=== PATIENT | female | born 1975 | race Caucasian/White ===

== ENCOUNTER 2016-06-30 16:22 | Inpatient (IN) | payer OTHER ==
[~2016-06-30] VITALS: Ht 149.9 cm; Wt 100.7 kg
[2016-06-30 16:22] VITALS: BP 112/67; PULSE 82; RESP 14; TEMP 96.7; O2SAT 100
[~2016-06-30 16:22] MED LIST: CAT.1 PO; LIDOCAINE/EPI 1% 1:100000 20 ML VIAL INJ ONE; MIDAZOLAM HCL 5 MG/5 ML VIAL IVP ONE; SSNOVOLOG SUBCUT; TEMA15CA51 PO; WATER FOR IRRIGATION,STERILE 1,000 ML IRRIG.SOLN IR ONE
--- NOTE | 2016-06-30 16:22 | NUR ---
Patient to ER bed 2 to gown for evaluation. Side rails up. Report given to NORMA Meraz. Addendum: 06/30/16 at 1831 by RITA Right upper arm fistula site present-patient states will use for first time saturday-small open area of skin noted, all pink, clean and dry. Right upper chest dialysis port present with pigtail-all covered with dressing, clean dry and intact, presently uses for dialysis.
--- NOTE | 2016-06-30 16:23 | NUR ---
Patient brought in by ambulance, stable condition, alert and oriented x4. States was at dialysis and started feeling very weak. Per EMT, states that patient's blood pressure dropped, fluid was given and then blood pressure returned to normal. Patient states still feels very weak. No dizziness, chest pain, pressure or radiaitng pain per patient. States that bilateral legs are cramping. No other complaints/injuries per patient or notied.
--- NOTE | 2016-06-30 16:33 | NUR ---
Dr Rangel at bedside
[2016-06-30] MEDS ORDERED: FOLI-43 PO (17:04)
[2016-06-30] MEDS ORDERED: HYDR-4039 PO (17:04)
[2016-06-30] MEDS ORDERED: LEVO50TA8 PO (17:04)
[2016-06-30] MEDS ORDERED: ONDA4TAB22 PO (17:04)
[2016-06-30] MEDS ORDERED: CALC667T5 PO (17:04)
[2016-06-30] MEDS ORDERED: CHOL100053 PO (17:04)
[2016-06-30] MEDS ORDERED: FAMO20TA8 PO (17:04)
[2016-06-30] MEDS ORDERED: ALPR0.5T8 PO (17:04)
[2016-06-30] MEDS ORDERED: NEPH PO (17:04)
[2016-06-30] MEDS ORDERED: GABA-531 PO (17:04)
--- NOTE | 2016-06-30 17:05 | NUR ---
Medication reconciliation completed with information provided by PATIENT. Any prior medication reconciliation on file was reviewed and corrected.
[2016-06-30 17:12] LABS: BILIRUBIN,URINE NEGATIVE (NEGATIVE); BLOOD, URINE NEGATIVE (NEGATIVE); COLOR,URINE YELLOW (YELLOW); GLUCOSE,URINE 3+ (NEGATIVE); KETONES,URINE NEGATIVE (NEGATIVE); LEUKOCYTE ESTERASE ,URINE NEGATIVE (NEGATIVE); NITRITE, URINE NEGATIVE (NEGATIVE); PROTEIN URINE 3+ (NEGATIVE); UROBILINOGEN,URINE 0.2 (0.2-1.0)
[2016-06-30 17:14] LABS: BASOPHILS # (AUTO) 0.1 K/uL (0.0-0.2); EOSINOPHILS # (AUTO) 0.2 K/uL (0.0-0.4); EOSINOPHILS % (AUTO) 1.8 % (0.0-4.0)
[2016-06-30 17:16] LABS: BASOPHILS % (AUTO) 0.6 % (0.0-2.0); CALCIUM 8.5 mg/dL (8.4-11.0); CREATININE 3.39 mg/dL (0.55-1.30); HEMATOCRIT 34.2 % (36-48); HEMOGLOBIN 11.4 g/dL (12.0-16.0); LYMPHOCYTES % (AUTO) 15.4 % (20.5-51.5); MEAN CORPUSCULAR HEMOGLOBIN 32 pg (27-31); MEAN CORPUSCULAR HGB CONC 33 % (32-36); MEAN CORPUSCULAR VOLUME 95 fL (79.0-98.0); MONOCYTES % (AUTO) 7.4 % (1.7-9.3); NEUTROPHILS # (AUTO) 9.6 K/uL (1.8-7.7); NEUTROPHILS % (AUTO) 74.8 % (40.0-70.0); PLATELET COUNT (AUTO) 203 K/uL (130-430); POTASSIUM 4.4 mmol/L (3.5-5.1); RED CELL DISTRIBUTION WIDTH 13.7 % (9.0-15.0); WHITE BLOOD COUNT (AUTO) 12.9 K/uL (4.8-10.8)
[2016-06-30 17:17] LABS: PROTHROMBIN TIME 10.5 SECS (9.5-12.5)
[2016-06-30 17:19] LABS: CLARITY/URINE HAZY (CLEAR)
[2016-06-30 17:20] LABS: BACTERIA,URINE FEW /HPF (None Seen); RBC,URINE NONE SEEN /HPF (0-3); WBC,URINE 0-3 /HPF (0-3)
[2016-06-30 17:21] LABS: MUCUS,URINE None Seen /LPF (None Seen)
[2016-06-30 17:32] LABS: ALBUMIN 3.4 g/dL (3.4-4.8); TOTAL BILIRUBIN 0.4 mg/dL (0.0-1.0); TOTAL PROTEIN, SERUM 7.5 g/dL (6.4-8.3)
--- NOTE | 2016-06-30 18:17 | NUR ---
Patient in stable condition, no distress noted
--- NOTE | 2016-06-30 19:10 | NUR ---
Care and report recieved from Mariya GREEN. Patient brought in by ambulance, stable condition, alert and oriented x4. States she was at dialysis today and started feeling very weak. Per Mariya GREEN, states that patient's blood pressure dropped, fluid was given and then blood pressure returned to normal. Pt doesn't feel weak, but is having 7/10 body aches. Pt is resting comfortably in her bed. Pt on panel monitor and will continue to monitor. Vitals stable. No other injuries or complaints mentioned/noted. No distress noted.
[2016-06-30] MEDS ORDERED: NS 500 ML IV ONE ×2 (19:30→22:30)
--- NOTE | 2016-06-30 19:30 | NUR ---
Pt is awaiting being admitted. Waiting for Dr. Alvarado to call back.
--- NOTE | 2016-06-30 20:00 | NUR ---
# 22 gauge angiocath placed to L hand. Use of asceptic technique. Opsite placed over site. Blood return noted. Flushed with 10 cc of normal saline. No evidence of infiltration noted. Patient tolerated well. Placed by Cara GREEN.
[2016-06-30] MEDS ORDERED: KETOROLAC TROMETHAMINE 30 MG VIAL IVP ONE (20:15)
[2016-06-30] MEDS ORDERED: PROCHLORPERAZINE EDISYLATE 10 MG/2 ML VIAL IVP ONE (20:15)
[2016-06-30] MEDS ORDERED: ACETAMINOPHEN 500 MG TABLET PO ONE (20:15)
[2016-06-30] MEDS ORDERED: DIPHENHYDRAMINE INJ 50 MG/ML VIAL IVP ONE (20:15)
[2016-06-30] MEDS ORDERED: MORPHINE 4 MG/ML INJ. SYRINGE IVP ONE (20:15)
[2016-06-30] MEDS ORDERED: ACETAMINOPHEN 500 MG TABLET ONE (20:59)
--- NOTE | 2016-06-30 22:15 | NUR ---
Dr. Sauceda made aware of 81/32 BP. Pt is A and O x4. Pt is responding approriately. ordered another 500 ml NS bolus.
--- NOTE | 2016-06-30 22:15 | NUR ---
Sepsis protocol reevaluated with Dr. Sauceda. At this time, MD does not want to start sepsis protocol.
[2016-06-30] MEDS ORDERED: ONDANSETRON HCL 4 MG/2 ML VIAL IVP PRN (23:00)
[2016-06-30] MEDS ORDERED: ACETAMINOPHEN 325 MG TABLET PO PRN (23:00)
--- NOTE | 2016-06-30 23:34 | NUR ---
ADMISSION NOTE Received patient from ER via gurashlyn, received report from RN. Patient admitted with diagnosis of Hypotension and Headache. Patient oriented to hospital routine, call light, toileting and safety-patient verbalized understanding.
--- NOTE | 2016-06-30 23:35 | NUR ---
Patient will be admitted to care of Dr. Alvarado. Admitted to Telemetry unit. Will go to room 118A. Summary report printed. Report given to Qiana GREEN.
--- NOTE | 2016-06-30 23:45 | NUR ---
Admission Assessment Received patient from ED, AAO x4, no acute distress noted, is at the bedside. Assessment complete, vital signs stable, blood pressure within normal limits, no complain of pain at this time. Patient is blind, no complain of dizziness/light headedness, ambulatory with steady gait with assistance to restroom and safely back to bed. IV noted to left hand, saline locked at this time, flushes well, IV antibiotics to be administered per MD order. Right chest noted with permacath for hemodialysis access. Education provided to patient to call for assistance when she needs to get out of bed, she verbalized understanding. Plan of care discussed with patient and at the bedside, they verbalized understanding. Patient is verbally able to make needs known and encouraged to do so. Call light is within reach, all fall and safety precautions in place, will continue to monitor for change in patient status.
[2016-06-30 23:51] VITALS: BP 121/74; PULSE 75; RESP 20; TEMP 97.8; O2SAT 98
[2016-07-01] VITALS (22 sets, daily range): BP systolic 71–155; BP diastolic 30–84; PULSE 75–110; RESP 14–26; TEMP 97.2–98.7; O2SAT 15–100
[2016-07-01] MEDS ORDERED: VANCOMYCIN HCL 1000 MG/VIAL IV ONE (00:12)
[2016-07-01] MEDS ORDERED: PIPERACILLIN/TAZOBACTAM 2.25 GM VIAL IV ONE (00:12)
[2016-07-01] MEDS: PIPERACILLIN/TAZO 2.25G/DEX-IS 50 ML IV SCH ×3 (00:25→15:17)
[2016-07-01] MEDS: VANCOMYCIN HCL 1 GM/NS PREMIX 250 ML IV ONE ×2 (01:00→02:00)
--- NOTE | 2016-07-01 02:30 | NUR ---
CONSULTATION PAGED REASON FOR CONSULTATION: dialysis WAS CONSULT CALLED? yes PERSON WHO WAS NOTIFIED: mendoza CONSULTING PHYSICIAN: Dr. Chaves; Dr. Red is intercell connector placer for [facility]: Nephrology [facility] PHONE NUMBER: [phone]
--- NOTE | 2016-07-01 02:35 | NUR ---
RN Rounds Patient is resting quietly in bed, IV noted to have been accidentally pulled out. New IV is being attempted at this time. Patient noted to be short of breath, O2 started via nasal cannula at 2L/min and tolerating well. Zosyn is stopped for now until IV access can be established, Vancomycin to be started after. and mother are at the bedside. Reminded patient to call for assistance if she needs to get out of bed, she verbalized understanding. Call light is within reach, all fall and safety precautions in place, will continue to monitor.
--- NOTE | 2016-07-01 03:26 | NUR ---
PAGED DR SULLIVAN
[2016-07-01] MEDS ORDERED: HYDROCORTISONE SOD SUCC 100 MG/2 ML VIAL IVP ONE (03:30)
[2016-07-01] MEDS ORDERED: FUROSEMIDE 20 MG/2 ML VIAL IVP ONE (03:30)
[2016-07-01] MEDS ORDERED: FAMOTIDINE PF 20 MG/2 ML VIAL IVP ONE (03:30)
[2016-07-01] MEDS ORDERED: DIPHENHYDRAMINE INJ 50 MG/ML VIAL IVP ONE (03:30)
--- NOTE | 2016-07-01 03:30 | NUR ---
MD Called Dr Alvarado was called and made aware that patient was receiving IV Zosyn and became short of breath, respiration rate increased to 24 and O2 saturation 87-89%, BP 140/100 and HR 120. Also informed him that blood cultures could not be drawn by patient case coordinator or nurses due to patient being a hard stick. New orders received to not give dose of Vancomycin, give Lasix 20mg IVP once, Solu-Cortef 50mg IVP once, Benadryl 25mg IVP once, Pepcid 20mg IVP once and breathing treatments with Albuterol T3ssiax. Also received titration order for oxygen to maintain O2 >94%. Orders noted and to be carried out.
--- NOTE | 2016-07-01 03:50 | NUR ---
paged for dr. montague , dialed [phone] spoke with Sydni
[2016-07-01] MEDS: ALBUTEROL SULFATE 0.083% 2.5 MG/3 ML VIAL.NEB INH SCH ×4 (03:52→19:54)
--- NOTE | 2016-07-01 03:52 | NUR ---
MD Called Called Dr Alvarado and informed him that patient's blood pressure is now 77/49 and 88/56 on reassessment with HR ranging from 80's-90's. New orders received to transfer patient to ICU with Levophed starting at 5mcg to maintain SBP >90, give a NS bolus of 250mL, and cardiology consultation with Dr. Molina. Orders noted and to be carried out.
[2016-07-01] MEDS ORDERED: ALBUTEROL SULFATE 0.083% 2.5 MG/3 ML VIAL.NEB INH ONE ×2 (03:53→09:30)
[2016-07-01] MEDS ORDERED: NS 250 ML IV ONE ×2 (04:00→19:30)
--- NOTE | 2016-07-01 04:15 | NUR ---
PT TRANSFERRED: Received report from NORMA Kiran via SB[facility] method.Patient hypotensive, currently receiving 250 ml bolus of NS.Will reassess BP within 15 mins.
--- NOTE | 2016-07-01 04:15 | NUR ---
Patient Transferred to ICU Patient was transferred to ICU per MD order, hypotensive but asymptomatic at this time. Normal saline bolus infusing at this time to gravity. Ordered medications administered per MD order, Lasix held due to decreased blood pressure. Patient tolerating nasal cannula at 1L/min with O2 saturation at 99%. SBAR report was endorsed to nurse at bedside.
[2016-07-01] MEDS ORDERED: NOREPINEPHRINE BITARTRATE 4 MG in NS 246 ML IV PRN (04:30)
--- NOTE | 2016-07-01 04:30 | NUR ---
PT UPDATE: Patient BP 119/68, no signs of distress.Will continue to monitor.
[2016-07-01] MEDS ORDERED: NOREPINEPHRINE 4 MG/4 ML VIAL IV ONE (04:32)
--- NOTE | 2016-07-01 04:34 | NUR ---
CALLED DR. REED FOR MORNING CONSULT AND DR. JUDGE IS THE ONCALL. CALLED DR. LAZAR FOR MORNING CONSULT AND SPOKE WITH BRENNA.
--- NOTE | 2016-07-01 05:20 | NUR ---
LEVOPHED DRIP STARTED: Patient BP 88/50.Levophed drip titration started at 5 mcg/min as ordered.Will reassess BP within 15 minutes.
--- NOTE | 2016-07-01 05:35 | NUR ---
PT UPDATE: Pt BP 135/68 HR 82 RR 16 O2SAT 100%. Levophed drip remains at rate of 5 mcg/min. Will continue to monitor.
[2016-07-01] MEDS: NORMAL SALINE 5 ML DISP.SYRIN IVF SCH ×3 (06:00→21:35)
--- NOTE | 2016-07-01 07:15 | NUR ---
CLOSING NOTE: Report given to NORMA Mabry.Endorsed plan of care to oncoming nurse.
--- NOTE | 2016-07-01 07:30 | NUR ---
Received pt asleep and family at bedside. VSS on levophed at 3 mcgs. SR on monitor. HOB up. Will monitor.
--- NOTE | 2016-07-01 08:20 | NUR ---
Pt awake and oriented. Pt is blind and can only see shadows. C/O being hungry. Levophed turned down to 2 mcgs. and infusing to 24g left hand. Will monitor BP. Lungs with crackles and diminished in bases. 02 at 3L and turned down to 2L by RT. Sats 97%. HOB up. No edema and pulses palpable. Able to move extremities but feels weak. Pt states she still voids but doesn't meed to go now. Right chest permacath in place. Right upper arm AV graft with weak bruit and thrill. Call fam in reach and Will continue to monitor.
[2016-07-01 08:36] LABS: HEMATOCRIT 35.7 % (36-48); HEMOGLOBIN 11.7 g/dL (12.0-16.0); MEAN CORPUSCULAR HEMOGLOBIN 31 pg (27-31); MEAN CORPUSCULAR HGB CONC 33 % (32-36); MEAN CORPUSCULAR VOLUME 95 fL (79.0-98.0); PLATELET COUNT (AUTO) 224 K/uL (130-430); RED BLOOD CELL COUNT(AUTO) 3.78 MIL/uL (4.2-6.2); RED CELL DISTRIBUTION WIDTH 13.6 % (9.0-15.0)
[2016-07-01 08:40] LABS: WHITE BLOOD COUNT (AUTO) 20.6 K/uL (4.8-10.8)
[2016-07-01 08:48] LABS: ALBUMIN 3.6 g/dL (3.4-4.8); CALCIUM 8.6 mg/dL (8.4-11.0); CREATININE 4.93 mg/dL (0.55-1.30); TOTAL BILIRUBIN 0.5 mg/dL (0.0-1.0); TOTAL PROTEIN, SERUM 7.6 g/dL (6.4-8.3)
[2016-07-01 08:52] LABS: POTASSIUM 6.7 mmol/L (3.5-5.1)
[2016-07-01] MEDS: FOLIC ACID 1 MG TABLET PO SCH ×2 (08:57→09:00)
[2016-07-01] MEDS: MORPHINE 2 MG/ML INJ. SYRINGE IVP PRN ×3 (08:57→20:10)
[2016-07-01] MEDS: FAMOTIDINE 20 MG TABLET PO SCH (08:57)
[2016-07-01] MEDS: GABAPENTIN 300 MG CAPSULE PO SCH ×3 (08:57→21:36)
[2016-07-01] MEDS: NEPHROVITE, (FOLIC ACID/VITAMIN B COMP W-C 1 TAB) PO SCH (08:57)
[2016-07-01] MEDS ORDERED: LEVOTHYROXINE SODIUM 0.05 MG TABLET PO SCH (09:00)
--- NOTE | 2016-07-01 09:16 | NUR ---
Call out to Dr. Chaves regarding labs.
[2016-07-01 09:19] LABS: ATYPICAL LYMPHOCYTES % 0 % (0-0); BAND % (MANUAL) 3 % (0-6); BASOPHILS % (MANUAL) 0 % (0-2); EOSINOPHILS % (MANUAL) 0 % (0-7); LYMPHOCYTES % (MANUAL) 8 % (20-46); MONOCYTES % (MANUAL) 3 % (0-11)
[2016-07-01] MEDS ORDERED: INSULIN REGULAR, HUMAN 100 UNITS/ML, 10 ML VIAL IVP ONE (09:30)
[2016-07-01] MEDS ORDERED: SODIUM BICARBONATE 8.4% JECT 50 MEQ/50 ML SYRINGE IVP ONE (09:30)
[2016-07-01] MEDS ORDERED: SODIUM POLYSTYRENE SULFONATE 15 GM/60 ML UDBTL PO ONE (09:30)
--- NOTE | 2016-07-01 09:45 | NUR ---
Spoke with Dr. Red and reported K to him. Orders left.
--- NOTE | 2016-07-01 09:57 | NUR ---
consult for dr. holder called (dr. dobson is verification engineer) spoke to breann villarreal [phone]
[2016-07-01] MEDS ORDERED: CALCIUM GLUCONATE 2 GM in NS 100 ML IV ONE (10:30)
[2016-07-01] MEDS ORDERED: CALCIUM CHLORIDE 2 GM in NS 100 ML IV ONE (11:00)
[2016-07-01] MEDS ORDERED: HEPARIN SODIUM,PORCINE 5000 UNITS/ML VIAL ONE (11:38)
[2016-07-01] MEDS ORDERED: ALPRAZolam 0.25 MG TABLET PO PRN (11:45)
[2016-07-01] MEDS ORDERED: INSULIN ASPART 100 UNITS/ML, 10 ML VIAL (NovoLOG) SUBCUT PRN (11:45)
--- NOTE | 2016-07-01 11:45 | NUR ---
Dr. Red in to see pt. Orders left. Pt using cell phone in bed. States morphine given earlier helped with her pain. VSS. ST on monitor. No stool yet since giving kayexalate/bicarb and insulin earlier.
[2016-07-01] MEDS ORDERED: GLUCOSE 15 GM GEL (in 37.5 GM TUBE) PO PRN ×2 (12:00)
[2016-07-01] MEDS ORDERED: VANCOMYCIN HCL 1,500 MG in NS 250 ML IV ONE (12:00)
[2016-07-01] MEDS ORDERED: CALCIUM CHLORIDE 1 GM in NS 100 ML IV ONE (12:00)
[2016-07-01] MEDS ORDERED: DEXTROSE 50%-WATER 50 ML DISP.SYRIN IVP PRN ×2 (12:00)
[2016-07-01] MEDS ORDERED: INSULIN REGULAR, HUMAN 100 UNITS/ML, 10 ML VIAL SUBCUT ONE (12:15)
[2016-07-01 13:14] LABS: POTASSIUM 5.2 mmol/L (3.5-5.1)
[2016-07-01 13:15] LABS: CALCIUM 8.2 mg/dL (8.4-11.0); CREATININE 5.46 mg/dL (0.55-1.30)
--- NOTE | 2016-07-01 13:35 | NUR ---
Dialysis in progress without problems.
--- NOTE | 2016-07-01 15:30 | NUR ---
Dr. Red called back and lactic acid reported to him. Order left. IVF increased to 50 cc/hr.
--- NOTE | 2016-07-01 15:45 | NUR ---
Dialysis completed. No fluid removed due to elevated HR and low BP when attempted.
--- NOTE | 2016-07-01 17:30 | NUR ---
Pt having diarrhea x 3 and shari care done.
[2016-07-01 18:01] LABS: CALCIUM 7.8 mg/dL (8.4-11.0); CREATININE 2.39 mg/dL (0.55-1.30)
[2016-07-01] MEDS: INSULIN ASPART 100 UNITS/ML, 10 ML VIAL (NovoLOG) SUBCUT PRN (18:03)
[2016-07-01 18:13] LABS: POTASSIUM 2.9 mmol/L (3.5-5.1)
--- NOTE | 2016-07-01 18:15 | NUR ---
Spoke to Dr. Red and reported K 2.7. Orders left.
[2016-07-01] MEDS ORDERED: POTASSIUM CHLORIDE 20 MEQ TAB.PRT.SR PO ONE (18:45)
[2016-07-01] MEDS ORDERED: NACL 0.9% 1,000 ML IV SCH (19:30)
--- NOTE | 2016-07-01 20:00 | NUR ---
Received pt aaox4. SR with occasional PVC on tele. Room air. No complaints of chest pain or shortness of breath. Left wrist PIV, patent and intact when flushed. IVF infusing via blue port of permacath. Pt states she has a headache 12/10, will medicate. Pt repositions independently. Will continue to monitor.
[2016-07-02] VITALS (15 sets, daily range): BP systolic 100–153; BP diastolic 49–93; PULSE 80–110; RESP 13–26; TEMP 97.8–99.6; O2SAT 94–100; Ht 149.9 cm; Wt 100.7 kg
--- NOTE | 2016-07-02 | NUR ---
Pt resting in bed. On phone with friend. ST with occ PVC on tele. O22L via nasal cannula. No complaints of pain at this time. Will continue to monitor.
[2016-07-02] MEDS: PIPERACILLIN/TAZO 2.25G/DEX-IS 50 ML IV SCH ×2 (00:57→12:20)
[2016-07-02] MEDS: ALBUTEROL SULFATE 0.083% 2.5 MG/3 ML VIAL.NEB INH SCH ×4 (01:04→20:37)
--- NOTE | 2016-07-02 04:00 | NUR ---
Pt sleeping in bed. NO s/s cardiac/respiratory distress noted. Will continue to monitor.
--- NOTE | 2016-07-02 06:09 | NUR ---
Toiletries at bedside. Pt states she can take care of herself. Will continue to monitor.
[2016-07-02] MEDS: GABAPENTIN 300 MG CAPSULE PO SCH ×3 (07:16→21:17)
[2016-07-02] MEDS: LEVOTHYROXINE SODIUM 0.05 MG TABLET PO SCH (07:16)
[2016-07-02] MEDS: NORMAL SALINE 5 ML DISP.SYRIN IVF SCH ×3 (07:16→21:17)
[2016-07-02 07:31] LABS: BASOPHILS % (AUTO) 0.6 % (0.0-2.0); EOSINOPHILS # (AUTO) 0.2 K/uL (0.0-0.4); EOSINOPHILS % (AUTO) 2.3 % (0.0-4.0); HEMATOCRIT 27.4 % (36-48); HEMOGLOBIN 9.2 g/dL (12.0-16.0); LYMPHOCYTES # (AUTO) 1.7 K/uL (1.0-5.5); LYMPHOCYTES % (AUTO) 23.5 % (20.5-51.5); MEAN CORPUSCULAR HEMOGLOBIN 31 pg (27-31); MEAN CORPUSCULAR HGB CONC 34 % (32-36); MEAN CORPUSCULAR VOLUME 94 fL (79.0-98.0); MONOCYTES # (AUTO) 0.5 K/uL (0.0-1.0); MONOCYTES % (AUTO) 6.8 % (1.7-9.3); NEUTROPHILS % (AUTO) 66.8 % (40.0-70.0); PLATELET COUNT (AUTO) 186 K/uL (130-430); RED BLOOD CELL COUNT(AUTO) 2.92 MIL/uL (4.2-6.2); RED CELL DISTRIBUTION WIDTH 13.4 % (9.0-15.0); WHITE BLOOD COUNT (AUTO) 7.4 K/uL (4.8-10.8)
--- NOTE | 2016-07-02 07:43 | NUR ---
Endorsed to NORMA Coyne.
[2016-07-02 07:53] LABS: ALBUMIN 3.1 g/dL (3.4-4.8); CALCIUM 8.3 mg/dL (8.4-11.0); CREATININE 4.52 mg/dL (0.55-1.30); POTASSIUM 3.6 mmol/L (3.5-5.1); TOTAL BILIRUBIN 0.3 mg/dL (0.0-1.0); TOTAL PROTEIN, SERUM 6.5 g/dL (6.4-8.3)
[2016-07-02] MEDS: INSULIN ASPART 100 UNITS/ML, 10 ML VIAL (NovoLOG) SUBCUT PRN ×4 (07:54→21:28)
--- NOTE | 2016-07-02 08:43 | NUR ---
RECEIVED PT ALERT AND ORIENTED LOOKING AT CELL PHONE. NO C/O. SR WITH PVC'S ON MONITOR. 02 2L NC IN USE WITH SATS 97%. LUNGS DIMINISHED IN BASES. HOB UP. PT HAS A RIGHT CHEST PERMACATH IN PLACE AND A LEFT HAND 24G SALINE LOCK. NO IVF INFUSING AT THIS TIME DUE TO BP BEING ELEVATED LAST NIGHT AND MD ORDER TO STOP. WILL MONITOR PT.
--- NOTE | 2016-07-02 08:50 | NUR ---
PT HAS A GOOD APETITE FOR BREAKFAST. TAKING FLUIDS. VSS. SR WITH PVC'S ON THE MONITOR. PT IS ANURIC PER DR JUDGE. NO DIARRHEA TODAY. WILL CONTINUE TO MONITOR.
[2016-07-02] MEDS: FAMOTIDINE 20 MG TABLET PO SCH (09:03)
[2016-07-02] MEDS: NEPHROVITE, (FOLIC ACID/VITAMIN B COMP W-C 1 TAB) PO SCH (09:03)
--- NOTE | 2016-07-02 09:19 | NUR ---
Nutrition Update Fabian Scale 18 noted. Pt admitted for hypotension and headache. Diet: renal standard BMI: 44.8 kg/m2 RD to follow per nutrition care standards.
[2016-07-02] MEDS: MORPHINE 2 MG/ML INJ. SYRINGE IVP PRN ×3 (10:01→21:17)
[2016-07-02] MEDS: ALPRAZolam 0.25 MG TABLET PO PRN ×2 (10:21→21:20)
--- NOTE | 2016-07-02 10:37 | NUR ---
DR. SULLIVAN IN TO SEE PT. ORDERS LEFT.
--- NOTE | 2016-07-02 10:41 | NUR ---
MEDICATED PT WITH MORPHINE FOR C/O A HEADACHE. WILL RE EVALUATE.
--- NOTE | 2016-07-02 11:20 | NUR ---
PICC LINE NURSE HERE TO START PIV WITH US PER DR JUDGE'S ORDER. 20G TO RIGHT AC STARTED. Addendum: 07/02/16 at 1321 by Doretha Barbour RN PIV STARTED IN LEFT AC NOT RIGHT SIDE DOCUMENTED ABOVE.
--- NOTE | 2016-07-02 12:40 | NUR ---
Transfer from ICU: Received 41 years old from ICU via a bed. She is alert, oriented x4, denies any pain or discomfort at this time. She is blind right eye, but able to see only blur on left eye. On Oxygen 2 L/M via NC with sat O2= 97%. On Antibiotic running via Left AC IV access, no sign of infiltration, and IV lock # 24-G at left hand. Perma cath is on right upper chest, and AV-shunt on right upper arm.
--- NOTE | 2016-07-02 12:50 | NUR ---
TRANSFERRED PT TO [facility] WITH BELONGINGS. PT HAD CELL PHONE IN HER HAND. REPORT GIVEN TO LOUIS.
--- NOTE | 2016-07-02 13:18 | NUR ---
Numbness: Patient complains of numbness on her right hand. She states that she can not hold fork to eat. She said " I'm scare that I will get stroke." Dr. Alvarado is paged.
--- NOTE | 2016-07-02 13:50 | NUR ---
REPORT. RECEIVED FROM LOUIS, RN. WENT TO ASSESS PT. PT CALMLY STATED, "I'M NERVOUS BECAUSE MY DOCTOR WILL TAKE OUT MY CATHETER TODAY." "IT'S INFECTED". STAYED WITH PT FOR 10 MINUTES. ALLOWED HER TO VENTILATE HER FEELINGS. WILL WAIT FOR THE SURGEON ON TODAY'S PLAN.
[2016-07-02] MEDS ORDERED: LIDOCAINE 1%, 20 ML MDV 0 ML ONE (14:19)
--- NOTE | 2016-07-02 14:19 | NUR ---
PAIN. DR BISHOP HERE AND WENT TO SEE PT. SHE COMPLAINED OF HEADACHE, 6/10 SCALE, MORPHINE 2 MG IVP GIVEN.
--- NOTE | 2016-07-02 14:25 | NUR ---
PROCEDURE. DR BISHOP CAME BACK. TIME OUT DONE, LIDOCAINE WITH EPINEPHRINE INJECTED BY DR BISHOP SUBCUT INTO RT CHEST, ATTEMPTED TO REMOVE CATHETER, UNSUCCESSFUL, PATCHED UP SITE WITH VASELINE GAUZE AND DRY GAUZE TO STOP BLEEDING AND TAPED WELL. CLEANED PT AFTER THE PROCEDURE.
--- NOTE | 2016-07-02 14:40 | NUR ---
IRRIGATION SYSTEM INSTALLER. DR CUBA CAME IN AND EXAMINED PT.
[2016-07-02] MEDS ORDERED: NACL 0.9% 1,000 ML IV SCH (16:00)
--- NOTE | 2016-07-02 16:00 | NUR ---
NURSING. PT CALM, VITAL SIGNS GOOD, HER MOTHER AT BEDSIDE, CONVERSATION GOING ON.
--- NOTE | 2016-07-02 18:30 | NUR ---
ANXIETY. PT SEEN IN TEARS WHILE SPEAKING TO HER MOTHER VIA PHONE, PT VERBALIZED FEAR FOR TOMORROW'S SURGERY, COACHED PT TO CONTROL HER ANXIETY, TO DIVERT HER ATTENTION TO OTHER THINGS, WATCH HER FAVORITE FUNNY SHOW ON TV, LISTEN TO CALMING MUSIC.
--- NOTE | 2016-07-02 19:40 | NUR ---
PM ASSESSMENT PT. A/OX4, VITAL SIGNS STABLE, NO DISTRESS NOTED, DENIES PAIN, NOTED WITH R. UPPER CHEST DRESSING. UPDATED WITH PLAN OF CARE, ENCOURAGED PT. TO USE CALL LIGHT FOR ASSISTANCE, CALL LIGHT WITHIN REACH, WILL CONTINUE TO MONITOR.
--- NOTE | 2016-07-02 21:30 | NUR ---
ACCUCHECK BLOOD QYILW=[id number], 8 UNITS NOVOLOG GIVEN ORDERED, WILL CONTINUE TO MONITOR.
--- NOTE | 2016-07-02 22:30 | NUR ---
RN ROUNDS PT. RESTING QUIETLY, VITAL SIGNS STABLE, NO DISTRESS NOTED, DENIES PAIN, CALL LIGHT WITHIN REACH, WILL CONTINUE TO MONITOR.
[2016-07-03] VITALS (7 sets, daily range): BP systolic 92–140; BP diastolic 55–87; PULSE 87–103; RESP 18–20; TEMP 97–99.5; O2SAT 92–100
[2016-07-03] MEDS: PIPERACILLIN/TAZO 2.25G/DEX-IS 50 ML IV SCH (00:06)
--- NOTE | 2016-07-03 00:30 | NUR ---
RN ROUNDS PT. RESTING QUIETLY, VITAL SIGNS STABLE, NO DISTRESS NOTED, DENIES PAIN, CALL LIGHT WITHIN REACH, WILL CONTINUE TO MONITOR.
[2016-07-03] MEDS: ALBUTEROL SULFATE 0.083% 2.5 MG/3 ML VIAL.NEB INH SCH ×3 (01:22→16:33)
--- NOTE | 2016-07-03 02:00 | NUR ---
RN ROUNDS PT. RESTING QUIETLY, VITAL SIGNS STABLE, NO DISTRESS NOTED, DENIES PAIN, CALL LIGHT WITHIN REACH, WILL CONTINUE TO MONITOR.
--- NOTE | 2016-07-03 04:00 | NUR ---
RN ROUNDS PT. RESTING QUIETLY, VITAL SIGNS STABLE, NO DISTRESS NOTED, DENIES PAIN, CALL LIGHT WITHIN REACH, WILL CONTINUE TO MONITOR.
--- NOTE | 2016-07-03 06:45 | NUR ---
CLOSING PT. RESTING QUIETLY, VITAL SIGNS STABLE, NO DISTRESS NOTED, DENIES PAIN, CALL LIGHT WITHIN REACH.
[2016-07-03] MEDS: NORMAL SALINE 5 ML DISP.SYRIN IVF SCH ×3 (06:53→22:27)
[2016-07-03] MEDS: LEVOTHYROXINE SODIUM 0.05 MG TABLET PO SCH (06:53)
[2016-07-03] MEDS: GABAPENTIN 300 MG CAPSULE PO SCH ×3 (06:53→22:26)
--- NOTE | 2016-07-03 08:00 | NUR ---
initial notes rec patient asleep but aorusbale to stimuli. resp easy and unlabored. no dizziness or nausea vomiting noted. with an av shunt on the r arm but no thrill or bruit. perma cath on the right upper chest with a bulky dressing intact. no bleeding noted. denies pain. ambulated with assists to the br and bianka well. bed in low position and side rails up and locked. will continue to monitor patient.
--- NOTE | 2016-07-03 10:00 | NUR ---
round seen by dr austen iniguez at bedside with order for dialysis today.
--- NOTE | 2016-07-03 10:50 | NUR ---
rounds pt was taken to sx via bed for removal of perma cath. dr arana came to see patient. mother at bedside.
[2016-07-03] MEDS: NACL 0.9% 1,000 ML IV SCH (11:42)
[2016-07-03] MEDS ORDERED: ONDANSETRON 4 MG ODT TAB PO SCH (11:45)
--- NOTE | 2016-07-03 13:00 | NUR ---
rounds pt back from rr s/p removal of the perma cath. dressing on the r upper chest intact. no bleeding noted.
[2016-07-03 13:09] LABS: HEPATITIS A AB, IgM Negative (Negative); HEPATITIS B CORE AB, IgM Negative (Negative); HEPATITIS B SURFACE AG Negative (Negative)
[2016-07-03] MEDS: INSULIN ASPART 100 UNITS/ML, 10 ML VIAL (NovoLOG) SUBCUT PRN ×3 (13:20→20:50)
[2016-07-03] MEDS: FAMOTIDINE 20 MG TABLET PO SCH (13:23)
[2016-07-03] MEDS: NEPHROVITE, (FOLIC ACID/VITAMIN B COMP W-C 1 TAB) PO SCH (13:23)
--- NOTE | 2016-07-03 13:30 | NUR ---
rounds dialysis nurse at the bedside to dialyze patient.
[2016-07-03] MEDS: cloNIDine HCL 0.1 MG TABLET PO SCH ×2 (14:00→22:26)
[2016-07-03] MEDS: hydrALAZINE HCL 25 MG TABLET PO SCH ×2 (15:00→20:39)
--- NOTE | 2016-07-03 15:51 | NUR ---
rounds dr iniguez was notified re dialysis nurse unable to access the r upper arm dialysis access. stated to call dr casey. waiting for dr casey to call back.l
--- NOTE | 2016-07-03 16:30 | NUR ---
rounds dr arana called back and informed re putting in another perma cath as per dr iniguez. stated will have the safety representative call him if they want it done tonight. dr iniguez was called back and awaiting to call.
--- NOTE | 2016-07-03 17:30 | NUR ---
rounds explained to patient re dialysis situation. call light within reached.
[2016-07-03] MEDS: cefTRIAXone 1 GM in D5W 50 ML IV SCH (18:09)
[2016-07-03] MEDS: VANCOMYCIN HCL 1,500 MG in NS 250 ML IV SCH (18:20)
--- NOTE | 2016-07-03 19:00 | NUR ---
closing notes endorsed to avinash barnes the conversation with with dr arana . no sob noted. no hypo hyperglycemic reaction noted.call light mela reached.
--- NOTE | 2016-07-03 19:51 | NUR ---
MD ROLLINS CALLED [facility] AT [phone]BHASIN CARTER NITIN MAINTENANCE COORDINATOR.
--- NOTE | 2016-07-03 20:00 | NUR ---
PM Assessment Received pt alert a/o x 4, respirations even and unlabored. No s/s of acute respiratory distress noted. Vital signs stable. Pt complaining of 3/10 headache and 7/10 abdominal pain, pt stated "I'm having pain due to stress." Pt to be medicated with tylenol and morphine IVP as ordered. Dressing noted to right upper chest, no s/s of active bleeding. AV shunt noted to right upper arm with dressing place. Will page Dr. Flynn for plan of care regarding hemodialysis tonight. Instructed pt to call for assistance, call light within easy reach. Will continue to monitor.
--- NOTE | 2016-07-03 20:12 | NUR ---
2ND CALL OUT TO MD CALLED [facility] AT [phone]BHASIN CISNEROS NITIN STRAP STITCHER.
--- NOTE | 2016-07-03 20:18 | NUR ---
Renal Paged Spoke with Dr. Schilling clay pigeon loader for Dr. Flynn regarding perm-a-cath placement tonight by Dr. Garrett. Dr. Schilling stated perm-a-cath does not need to be placed tonight and can be placed tomorrow by Dr. Garrett, pt in stable condition and hemodialysis is not an emergency. Will page Dr. Garrett to update.
--- NOTE | 2016-07-03 20:20 | NUR ---
PAGED PAGED JEANNE LOU AT [phone] SPOKE WITH AMELIA.
[2016-07-03] MEDS: ALPRAZolam 0.25 MG TABLET PO PRN (20:48)
[2016-07-03] MEDS: MORPHINE 2 MG/ML INJ. SYRINGE IVP PRN (20:49)
--- NOTE | 2016-07-03 22:10 | NUR ---
RN Rounds Pt denies any pain or discomfort at this time, due medications given. Encouraged pt to call for assistance, call light within reach. Will continue to monitor.
--- NOTE | 2016-07-04 00:24 | NUR ---
RN Rounds Pt resting comfortably in bed at this time, no s/s of acute distress noted. Bed in lowest position, will continue to monitor.
[2016-07-04] MEDS: ALBUTEROL SULFATE 0.083% 2.5 MG/3 ML VIAL.NEB INH SCH ×5 (00:33→20:13)
--- NOTE | 2016-07-04 03:36 | NUR ---
PATIENT RESTING: Patient resting quietly. No acute distress noted. Vital signs within normal range.
[2016-07-04 03:54] VITALS: BP 100/52; PULSE 88; RESP 18; TEMP 98.8; O2SAT 92
[2016-07-04] MEDS: cloNIDine HCL 0.1 MG TABLET PO SCH ×2 (06:00→13:36)
[2016-07-04] MEDS: LEVOTHYROXINE SODIUM 0.05 MG TABLET PO SCH (06:43)
[2016-07-04] MEDS: NORMAL SALINE 5 ML DISP.SYRIN IVF SCH ×2 (06:43→13:36)
[2016-07-04] MEDS: GABAPENTIN 300 MG CAPSULE PO SCH ×2 (06:43→13:36)
[2016-07-04] MEDS: INSULIN ASPART 100 UNITS/ML, 10 ML VIAL (NovoLOG) SUBCUT PRN ×3 (06:44→17:35)
[2016-07-04] MEDS: MORPHINE 2 MG/ML INJ. SYRINGE IVP PRN ×3 (06:46→17:33)
--- NOTE | 2016-07-04 07:32 | NUR ---
Closing notes Pt resting in bed, no s/s of acute distress noted. Endorse care to day shift nurse.
--- NOTE | 2016-07-04 07:35 | NUR ---
AM Rounds: Received pt sitting semi-fowlers in bed. No acute signs of distress noted. Vent and trach in place with no acute signs of respiratory distress noted. IV intact to LUE PICC. G-tube in place with no residual noted, infusing tube feed well. Colostomy bag in place to left abdomen draining liquid stool. Martínez cath draining well to gravity. Abdominal incision to abdomen with small opening noted to middle of site. Per NOC RN, Dr. Garrett is aware. Dressing to sacrum CDI. Dressing to bilateral hands CDI. Bilateral heel protectors in place. Call light in reach. Aspiration, fall, contact, and pressure ulcer precautions in place. Continue to monitor. Addendum: 07/04/16 at 1939 by Jennifer Avalos RN Wrong patient--please disregard this note.
--- NOTE | 2016-07-04 07:40 | NUR ---
AM Rounds: Received pt sitting semi-fowlers in bed. No acute signs of distress noted. IV intact to RUE with no redness or swelling noted to site. Dressing to right chest CDI. AV shunt to right upper arm with no bruit or thrill. Pending dialysis today per MD order. Pt is able to make needs known. No SOB noted or swelling to BLE noted. Call light in reach. Continue to monitor pt closely.
[2016-07-04] MEDS: NACL 0.9% 1,000 ML IV SCH (07:42)
[2016-07-04 08:26] VITALS: BP 125/70; PULSE 95; RESP 19; TEMP 97.1; O2SAT 100
[2016-07-04] MEDS: hydrALAZINE HCL 25 MG TABLET PO SCH ×2 (08:41→13:36)
[2016-07-04] MEDS: FAMOTIDINE 20 MG TABLET PO SCH (08:44)
[2016-07-04] MEDS: NEPHROVITE, (FOLIC ACID/VITAMIN B COMP W-C 1 TAB) PO SCH (08:44)
--- NOTE | 2016-07-04 08:46 | NUR ---
RN Rounds: AM meds given per MD order. BP meds held for dialysis today.
[2016-07-04 09:54] LABS: CALCIUM 8.2 mg/dL (8.4-11.0); CREATININE 6.53 mg/dL (0.55-1.30); POTASSIUM 3.8 mmol/L (3.5-5.1)
--- NOTE | 2016-07-04 10:36 | NUR ---
Page Dr. Garrett: Page Dr. Garrett to make aware that dialysis nurseMary will not come. Awaiting page back
--- NOTE | 2016-07-04 11:28 | NUR ---
Rounds: Pt sitting semi-fowlers in bed. No acute signs of distress noted at this time. IV intact to RUE with no redness or swelling noted to site. Call light in reach. blood sugar checked. Continue to monitor.
[2016-07-04 12:25] VITALS: BP 121/73; PULSE 90; RESP 18; TEMP 98; O2SAT 98
[2016-07-04] MEDS: cefTRIAXone 1 GM in D5W 50 ML IV SCH (13:36)
--- NOTE | 2016-07-04 13:48 | NUR ---
Rounds: Pt sitting up in bed. No acute signs of distress noted. Pt medicated for c/o pain. Call light in reach. Continue to monitor closely.
[2016-07-04] MEDS ORDERED: HEPARIN SODIUM,PORCINE 5000 UNITS/ML VIAL MC ONE (14:30)
--- NOTE | 2016-07-04 15:50 | NUR ---
Rounds: Pt sleeping in bed. No acute signs of distress noted. Breathing even and unlabored on room air. Call light in reach. Continue to monitor.
[2016-07-04 16:25] VITALS: BP 119/70; PULSE 90; RESP 18; TEMP 98.1; O2SAT 99
--- NOTE | 2016-07-04 17:25 | NUR ---
Rounds: Blood sugar checked and coverage given. Pt tolerates well. Dialysis access to LUE Roshan cath in place. No acute signs of bleeding noted. Continue to monitor.
[2016-07-04 19:00] VITALS: BP 129/82; PULSE 91; RESP 16; TEMP 98.3; O2SAT 100
--- NOTE | 2016-07-04 19:15 | NUR ---
change of shift.pt.assessed.confirmed pt.legally blind.hemo dialysis pt.av shunt Location:rt.arm:non-functional.perma-cath placed:lt.svc.pt.2 submit 2 hd tonight.iv access x2:lt.forearm,lt.hand.
--- NOTE | 2016-07-04 19:34 | NUR ---
Closing Note: Pt sitting up in bed and eating dinner. No acute signs of distress noted. Roshan cath in place. Call light in reach. All needs met at this time. Spoke with warehouse coordinator and gave him dialysis order for today. No other needs noted. Endorse plan of care to RUBÉN RN.
--- NOTE | 2016-07-04 19:45 | NUR ---
pt.assessed.v/s assessed.v/s values w/in normal limits.i have placed sign:re:rt.av-shunt.@hob.call light place w/in pt's reach.
[2016-07-04 20:00] VITALS: BP 129/82; PULSE 91; RESP 16; TEMP 98.3; O2SAT 100
--- NOTE | 2016-07-04 20:30 | NUR ---
pt.assessed.blood glucose:343mg/dl.hemo dialysis nsg arrived to initiate the h/d therapy.medication 2 b held post dialysis: including insulin coverage.i have apprised pt.and the h/d nsg.call light placed w/i pt's reach.
--- NOTE | 2016-07-04 21:00 | NUR ---
pt.assessed.h/d in progress.i inquired if the pt.presents request.pt.stated any snacks:sandwich.i have procured snacks and sandwich.provided to the pt.daily light w/in pt's reach.
--- NOTE | 2016-07-04 22:00 | NUR ---
pt.assessed.h/s in progress.pt.stable.no request @this hour.call light w/in pt's reach.
--- NOTE | 2016-07-04 23:00 | NUR ---
pt.assessed.hemo dialysis in progress.pt.norris no request @this hour.call light w/in pt's reach.
--- NOTE | 2016-07-05 | NUR ---
pt.assessed.hemo dialysis therapy completed:3-litres removed/exchanged.pt.stable.i have administered the medications @this hour; due @2100p i have administered the insulin coverage:novolog.i have provided further snacks.
[2016-07-05 00:28] VITALS: BP 124/69; PULSE 94; RESP 17; TEMP 98.2; O2SAT 97
[2016-07-05] MEDS: hydrALAZINE HCL 25 MG TABLET PO SCH ×3 (00:54→15:00)
[2016-07-05] MEDS: NORMAL SALINE 5 ML DISP.SYRIN IVF SCH ×3 (00:55→14:00)
[2016-07-05] MEDS: cloNIDine HCL 0.1 MG TABLET PO SCH ×3 (00:56→14:00)
[2016-07-05] MEDS: GABAPENTIN 300 MG CAPSULE PO SCH ×3 (00:57→14:00)
[2016-07-05] MEDS: INSULIN ASPART 100 UNITS/ML, 10 ML VIAL (NovoLOG) SUBCUT PRN ×3 (00:58→11:52)
[2016-07-05] MEDS: ALBUTEROL SULFATE 0.083% 2.5 MG/3 ML VIAL.NEB INH SCH ×3 (01:00→13:00)
--- NOTE | 2016-07-05 01:59 | NUR ---
pt.assessed.pt.awake talking per cell phone.i inquired if the pt.presents requests:pt.stated if i could provide a warmed blanket if available.i confirmed hospital has warmed blankets.i provided the blanket.no other request@this hour.
--- NOTE | 2016-07-05 02:20 | NUR ---
i have attempted 2 assess the pt's weight per bed scale.bed scale non-functioning.call light w/in pt's reach.pt.conversing per cell phone.
[2016-07-05] MEDS: NACL 0.9% 1,000 ML IV SCH (03:42)
--- NOTE | 2016-07-05 04:00 | NUR ---
pt.assessed.pt.presents quiescent affect;calm,asleep.pt.repositioned.call light placed w/in pt's reach.no request @this hour. Addendum: 07/05/16 at 0414 by Zheng Katz RN v/s values w/in normal limits.
[2016-07-05 04:16] VITALS: BP 112/60; PULSE 87; RESP 17; TEMP 97.5; O2SAT 99
[2016-07-05] MEDS: MORPHINE 2 MG/ML INJ. SYRINGE IVP PRN ×3 (06:06→15:42)
[2016-07-05] MEDS: LEVOTHYROXINE SODIUM 0.05 MG TABLET PO SCH (06:12)
[2016-07-05 07:33] LABS: BASOPHILS % (AUTO) 0.4 % (0.0-2.0); EOSINOPHILS # (AUTO) 0.3 K/uL (0.0-0.4); EOSINOPHILS % (AUTO) 4.7 % (0.0-4.0); HEMATOCRIT 25.7 % (36-48); HEMOGLOBIN 8.6 g/dL (12.0-16.0); LYMPHOCYTES # (AUTO) 1.4 K/uL (1.0-5.5); LYMPHOCYTES % (AUTO) 20.2 % (20.5-51.5); MEAN CORPUSCULAR HEMOGLOBIN 32 pg (27-31); MEAN CORPUSCULAR HGB CONC 34 % (32-36); MEAN CORPUSCULAR VOLUME 94 fL (79.0-98.0); MONOCYTES # (AUTO) 0.4 K/uL (0.0-1.0); MONOCYTES % (AUTO) 6.6 % (1.7-9.3); NEUTROPHILS # (AUTO) 4.6 K/uL (1.8-7.7); NEUTROPHILS % (AUTO) 68.1 % (40.0-70.0); PLATELET COUNT (AUTO) 148 K/uL (130-430); RED BLOOD CELL COUNT(AUTO) 2.73 MIL/uL (4.2-6.2); RED CELL DISTRIBUTION WIDTH 13.3 % (9.0-15.0); WHITE BLOOD COUNT (AUTO) 6.7 K/uL (4.8-10.8)
--- NOTE | 2016-07-05 07:45 | NUR ---
AM ROUNDS PATIENT RESTING IN BED ,AWAKE ,ALERT AND ORIENTED X4, DENIES PAIN AT THIS TIME, EDUCATED THE PATIENT NETWORKS SOFTWARE CONSULTANT LIGHT SYSTEM AND TO CALL FOR ANY ASSISTANCE, PATIENT VERBALIZED UNDERSTANDING, CALL LIGHT PLACED IN THE PATIENT'S HAND, ASSESSMENT COMPLETE,NO OTHER NEEDS AT THIS TIME, BED IN LOWEST POSITION, THREE SIDE RAILS UP, FALL PRECAUTIONS IN PLACE, BED CLOSE TO NURSE'S STATION.
[2016-07-05 07:55] LABS: CALCIUM 8.1 mg/dL (8.4-11.0); CREATININE 4.84 mg/dL (0.55-1.30); PHOSPHORUS 4.7 mg/dL (2.7-4.5); POTASSIUM 3.9 mmol/L (3.5-5.1)
--- NOTE | 2016-07-05 09:20 | NUR ---
RADIOLOGY INFORMED BY KADEEM THAT ORDERED VENOGRAM BY DR LAZAR CANNOT BE DONE HERE, PATIENT WILL NEED TO TRANSFER TO ANOTHER HOSPITAL OR FOLLOW UP AN OUTPATIENT, WILL INFORM DR LAZAR.
[2016-07-05] MEDS ORDERED: LINA5TAB2 PO (09:35)
[2016-07-05] MEDS ORDERED: INSU100V11 SUBCUT (09:35)
[2016-07-05] MEDS: NEPHROVITE, (FOLIC ACID/VITAMIN B COMP W-C 1 TAB) PO SCH (09:48)
[2016-07-05] MEDS: FAMOTIDINE 20 MG TABLET PO SCH (09:48)
--- NOTE | 2016-07-05 09:50 | NUR ---
DR LAZAR NOTIFIED REGARDING VENOGRAM NEEDING TO BE DONE AT ANOTHER FACILITY, STATED THAT PATIENT CAN FOLLOW UP AN OUTPATIENT, DR SULLIVAN ALSO PRESENT STATED PATIENT CAN DISCHARGE TODAY AND HE ALREADY SPOKE WITH DR REED AND DR KOROMA REGARDING DISCHARGE, WILL FOLLOW UP.
--- NOTE | 2016-07-05 09:50 | NUR ---
RN ROUNDS PATIENT RESTING IN BED, BEING ASSISTED BY KALLI SADNOVAL AT THIS TIME, PATIENT DENIES PAIN, EDUCATED ON MEDICATION AND POTENTIAL SIDE EFFECTS, PATIENT VERBALIZED UNDERSTANDING AT THIS TIME AND TOLERATED WELL, NO OTHER NEEDS AT THIS TIME, BED IN LOWEST POSITION, THREE SIDE RAILS UP, FALL PRECAUTIONS IN PLACE, CALL LIGHT NEXT TO THE PATIENT'S HAND, BED CLOSE TO NURSE'S STATION.
[2016-07-05 09:55] VITALS: BP 116/58; PULSE 90; RESP 16; TEMP 97.2; O2SAT 100
--- NOTE | 2016-07-05 10:00 | NUR ---
DR SULLIVAN STATED HE CALLED IN PRESCRIPTIONS FOR THE PATIENT AT THE PREFERRED PHARMACY FOR THE PATIENT, WILL CONFIRM WITH PHARMACY.
[2016-07-05 10:07] VITALS: BP 116/58; PULSE 90; RESP 16; TEMP 98.7; O2SAT 100
--- NOTE | 2016-07-05 11:59 | NUR ---
RN ROUNDS PATIENT RESTING IN BED, COMPLAINING OF MODERATE PAIN, BLOOD GLUCOSE CHECK AND INSULIN ADMINISTRATION COMPLETE PER MD ORDERS AT THIS TIME, EDUCATED THE PATIENT ON PAIN MEDICATION AND POTENTIAL SIDE EFFECTS, PATIENT VERBALIZED UNDERSTANDING AND TOLERATED WELL, WILL FOLLOW UP WITH DISCHARGE TODAY, NO OTHER NEEDS AT THIS TIME, BED IN LOWEST POSITION, THREE SIDE RAILS UP, FALL PRECAUTIONS IN PLACE, BED CLOSE TO NURSE'S STATION, CALL LIGHT NEXT TO THE PATIENT'S HAND.
[2016-07-05] MEDS: VANCOMYCIN HCL 1,500 MG in NS 250 ML IV SCH (12:00)
[2016-07-05 12:06] VITALS: BP 97/63; PULSE 85; RESP 20; TEMP 97.4; O2SAT 99
--- NOTE | 2016-07-05 13:42 | NUR ---
RN ROUNDS PATIENT RESTING IN BED, EYES CLOSED, BREATHING IS EVEN AND UNLABORED, NO SIGNS OF DISTRESS AT THIS TIME, PATIENT STATES SHE IS READY TO GO HOME, WILL FOLLOW UP WITH DISCHARGE, PATIENT'S MOTHER IS AT THE BEDSIDE AT THIS TIME, BED IN LOWEST POSITION, THREE SIDE RAILS UP, FALL PRECAUTIONS IN PLACE, CALL LIGHT NEXT OT THE PATIENT'S HAND, BED CLOSE TO NURSE'S STATION.
[2016-07-05] MEDS: cefTRIAXone 1 GM in D5W 50 ML IV SCH (14:00)
--- NOTE | 2016-07-05 14:10 | NUR ---
DR CADY CHERY STATES PATIENT IS OK TO DISCHARGE HOME.
--- NOTE | 2016-07-05 15:50 | NUR ---
D/C Patient Patient given medication reconciliation form and D/C instructions. Exit Care provided. Patient verbalized understanding. MD discussed with patient the results and treatment provided. Ambulatory with steady gait for discharge to home. Patient in stable condition, ID band removed. IV catheter removed, intact and dressing applied, no active bleeding. Rx of TRADJENTA/LEVEMIR given. Patient educated on pain management. All belongings sent with patient.
== END 2016-07-05 15:50 | disposition home or self-care (01) | DRG 314 ==
LOC: SED 16:22 → STU 22:48 → SIC 07-01 04:14 → STU 07-02 12:31
PROVIDERS: ADMIT Internal Medicine; ATTEND Internal Medicine
PROC: 05PYX3Z Removal of Infusion Device from Upper Vein, External Approach (ICD-10-PCS; principal; 2016-07-03 11:45)
PROC: 05H633Z Insertion of Infusion Device into Left Subclavian Vein, Percutaneous Approach (ICD-10-PCS; 2016-07-04)
PROC: B547ZZA Ultrasonography of Left Subclavian Vein, Guidance (ICD-10-PCS; 2016-07-04)
PROC: 5A1D00Z (ICD-10-PCS; 2016-07-04)
DX: T80.211A Bloodstream infection due to central venous catheter, initial encounter (principal); A41.9 Sepsis, unspecified organism; N18.6 End stage renal disease; R65.21 Severe sepsis with septic shock; I12.0 Hypertensive chronic kidney disease with stage 5 chronic kidney disease or end stage renal disease; Z68.41 Body mass index [BMI] 40.0-44.9, adult; E11.42 Type 2 diabetes mellitus with diabetic polyneuropathy; E03.9 Hypothyroidism, unspecified; D63.1 Anemia in chronic kidney disease; E11.22 Type 2 diabetes mellitus with diabetic chronic kidney disease; E11.3599 Type 2 diabetes mellitus with proliferative diabetic retinopathy without macular edema, unspecified eye; E11.65 Type 2 diabetes mellitus with hyperglycemia; E66.01 Morbid (severe) obesity due to excess calories; E87.5 Hyperkalemia; H40.9 Unspecified glaucoma; H54.0 Blindness, both eyes; Y84.8 Other medical procedures as the cause of abnormal reaction of the patient, or of later complication, without mention of misadventure at the time of the procedure; F41.9 Anxiety disorder, unspecified; M19.90 Unspecified osteoarthritis, unspecified site; E11.40 Type 2 diabetes mellitus with diabetic neuropathy, unspecified; F32.9 Major depressive disorder, single episode, unspecified; F79 Unspecified intellectual disabilities; Z88.0 Allergy status to penicillin; Z90.49 Acquired absence of other specified parts of digestive tract; Z99.2 Dependence on renal dialysis; Z83.3 Family history of diabetes mellitus; Z79.899 Other long term (current) drug therapy
CPT/HCPCS: 36415; 70450-TC; 71010; 80048; 80053; 80074; 80202-TC; 81000-TC; 82962; 83036; 83605; 83735-TC; 83880; 84100-TC; 84484; 85007; 85025; 85027; 85610-TC; 87040-TC; 87070-TC; 87081; 90935; 90937; 93005; 93306; 94640; 94760; 96361; 96374; 96375; 99285; C1751; J0696; J0780; J1200; J1644; J1720; J1815; J1885; J2001; J2250; J2270; J2543; J3370; J3490; J7030; J7040; J7050; J7060

== ENCOUNTER 2016-12-22 09:06 | Inpatient (IN) | payer OTHER ==
[~2016-12-22] VITALS: Ht 149.9 cm; Wt 101.6 kg
[2016-12-22 09:06] VITALS: BP_SYST 99
[~2016-12-22 09:06] MED LIST changes: +ALPR0.5T8 PO; +CALC667T5 PO; +CHOL100053 PO; +FAMO20TA8 PO; +FOLI-43 PO; +GABA-531 PO; +HYDR-4039 PO; +INSU100V11 SUBCUT; +LEVO50TA8 PO; -LIDOCAINE/EPI 1% 1:100000 20 ML VIAL INJ ONE; +LINA5TAB2 PO; -MIDAZOLAM HCL 5 MG/5 ML VIAL IVP ONE; +NEPH PO; +ONDA4TAB22 PO; -SSNOVOLOG SUBCUT; -TEMA15CA51 PO; -WATER FOR IRRIGATION,STERILE 1,000 ML IRRIG.SOLN IR ONE
[2016-12-22] MEDS ORDERED: ALPR0.5T96 PO (09:35)
[2016-12-22] MEDS ORDERED: NACL 0.9% 1,000 ML IV ONE (09:45)
[2016-12-22 09:57] LABS: BASOPHILS # (AUTO) 0.2 K/uL (0.0-0.2); BASOPHILS % (AUTO) 1.1 % (0.0-2.0); EOSINOPHILS # (AUTO) 0.2 K/uL (0.0-0.4); EOSINOPHILS % (AUTO) 1.3 % (0.0-4.0); HEMATOCRIT 35.5 % (36-48); HEMOGLOBIN 11.9 g/dL (12.0-16.0); LYMPHOCYTES # (AUTO) 2.1 K/uL (1.0-5.5); LYMPHOCYTES % (AUTO) 11.8 % (20.5-51.5); MEAN CORPUSCULAR HEMOGLOBIN 30 pg (27-31); MEAN CORPUSCULAR HGB CONC 34 % (32-36); MEAN CORPUSCULAR VOLUME 88 fL (79.0-98.0); MONOCYTES # (AUTO) 1.4 K/uL (0.0-1.0); MONOCYTES % (AUTO) 7.7 % (1.7-9.3); NEUTROPHILS # (AUTO) 13.7 K/uL (1.8-7.7); NEUTROPHILS % (AUTO) 78.1 % (40.0-70.0); PLATELET COUNT (AUTO) 304 K/uL (130-430); RED BLOOD CELL COUNT(AUTO) 4.02 MIL/uL (4.2-6.2); RED CELL DISTRIBUTION WIDTH 13.6 % (9.0-15.0); WHITE BLOOD COUNT (AUTO) 17.6 K/uL (4.8-10.8)
[2016-12-22 10:03] LABS: CALCIUM 8.5 mg/dL (8.4-11.0); CREATININE 5.7 mg/dL (0.55-1.30); INR 1.1 (0.8-1.2); POTASSIUM 3.5 mmol/L (3.5-5.1); PROTHROMBIN TIME 11.5 SECS (9.5-12.5)
[2016-12-22 10:09] LABS: ALBUMIN 3.4 g/dL (3.4-4.8); TOTAL BILIRUBIN 0.7 mg/dL (0.0-1.0); TOTAL PROTEIN, SERUM 7.6 g/dL (6.4-8.3)
[2016-12-22] MEDS ORDERED: CEFEPIME 1 GM in D5W 50 ML IV ONE ×2 (11:00→22:00)
[2016-12-22] MEDS ORDERED: VANCOMYCIN HCL 1,000 MG in NS 250 ML IV ONE (11:00)
[2016-12-22] MEDS ORDERED: VANCOMYCIN HCL 1000 MG/VIAL IV ONE ×2 (13:07→22:43)
[2016-12-22] MEDS ORDERED: CEFEPIME 1 GM/VIAL (MAXIPIME) ONE ×2 (13:07→22:42)
[2016-12-22 14:00] VITALS: BP_SYST 133
[2016-12-22 17:40] VITALS: BP_SYST 104
[2016-12-22] MEDS ORDERED: CEFEPIME 1 GM in D5W 50 ML IV SCH (21:00)
[2016-12-22] MEDS ORDERED: NACL 0.9% 1,000 ML IV SCH (21:28)
[2016-12-22] MEDS ORDERED: MORPHINE 2 MG/ML INJ. SYRINGE IVP PRN (21:30)
[2016-12-22] MEDS ORDERED: ACETAMINOPHEN 325 MG TABLET PO PRN (21:30)
[2016-12-22] MEDS ORDERED: ONDANSETRON HCL 4 MG/2 ML VIAL IVP PRN (21:30)
[2016-12-22] MEDS ORDERED: MAGNESIUM SULFATE 50 ML IV PRN (21:45)
[2016-12-22] MEDS ORDERED: ZOLPIDEM TARTRATE 5 MG TABLET PO PRN (21:45)
[2016-12-22] MEDS ORDERED: POTASSIUM CHLORIDE 20 MEQ TAB.PRT.SR PO PRN (21:45)
[2016-12-22] MEDS ORDERED: LORazepam 2 MG/ML VIAL IVP PRN (21:45)
[2016-12-22] MEDS: INSULIN REGULAR, HUMAN 100 UNITS/ML, 10 ML VIAL (novoLIN R) SUBCUT PRN (22:29)
[2016-12-22] MEDS ORDERED: VANCOMYCIN HCL 1 GM/NS PREMIX 250 ML IV ONE (23:00)
[2016-12-22] MEDS: GABAPENTIN 300 MG CAPSULE PO SCH (23:05)
[2016-12-22 23:35] VITALS: BP_SYST 120
[2016-12-23 03:40] VITALS: BP_SYST 98
[2016-12-23] MEDS: GABAPENTIN 300 MG CAPSULE PO SCH ×3 (06:14→22:03)
[2016-12-23] MEDS: INSULIN REGULAR, HUMAN 100 UNITS/ML, 10 ML VIAL (novoLIN R) SUBCUT PRN ×4 (06:18→22:07)
[2016-12-23 08:11] LABS: BASOPHILS # (AUTO) 0.1 K/uL (0.0-0.2); BASOPHILS % (AUTO) 0.4 % (0.0-2.0); EOSINOPHILS # (AUTO) 0.2 K/uL (0.0-0.4); EOSINOPHILS % (AUTO) 1.6 % (0.0-4.0); HEMATOCRIT 34.2 % (36-48); HEMOGLOBIN 11.3 g/dL (12.0-16.0); LYMPHOCYTES # (AUTO) 2.2 K/uL (1.0-5.5); LYMPHOCYTES % (AUTO) 16.9 % (20.5-51.5); MEAN CORPUSCULAR HEMOGLOBIN 29 pg (27-31); MEAN CORPUSCULAR HGB CONC 33 % (32-36); MEAN CORPUSCULAR VOLUME 89 fL (79.0-98.0); MONOCYTES # (AUTO) 1.2 K/uL (0.0-1.0); MONOCYTES % (AUTO) 9.3 % (1.7-9.3); NEUTROPHILS # (AUTO) 9.2 K/uL (1.8-7.7); NEUTROPHILS % (AUTO) 71.8 % (40.0-70.0); PLATELET COUNT (AUTO) 263 K/uL (130-430); RED BLOOD CELL COUNT(AUTO) 3.86 MIL/uL (4.2-6.2); RED CELL DISTRIBUTION WIDTH 13.6 % (9.0-15.0); WHITE BLOOD COUNT (AUTO) 12.9 K/uL (4.8-10.8)
[2016-12-23 08:30] VITALS: BP_SYST 111
[2016-12-23 08:39] LABS: ALBUMIN 3.3 g/dL (3.4-4.8); CALCIUM 8.5 mg/dL (8.4-11.0); CREATININE 6.21 mg/dL (0.55-1.30); FREE T4 (FREE THYROXINE) 1.2 ng/dL (0.6-1.6); PHOSPHORUS 4.6 mg/dL (2.7-4.5); POTASSIUM 3.5 mmol/L (3.5-5.1); THYROID STIMULATING HORMONE 1.99 uIu/mL (0.34-4.82); TOTAL BILIRUBIN 0.5 mg/dL (0.0-1.0); TOTAL PROTEIN, SERUM 7.4 g/dL (6.4-8.3)
[2016-12-23] MEDS: ALPRAZolam 0.25 MG TABLET PO SCH ×2 (09:00→21:20)
[2016-12-23] MEDS: LEVOTHYROXINE SODIUM 0.05 MG TABLET PO SCH (09:41)
[2016-12-23] MEDS: FAMOTIDINE 20 MG TABLET PO SCH (09:42)
[2016-12-23] MEDS: NEPHROVITE, (FOLIC ACID/VITAMIN B COMP W-C 1 TAB) PO SCH (09:42)
[2016-12-23] MEDS: FOLIC ACID 1 MG TABLET PO SCH (09:42)
[2016-12-23] MEDS: DOCUSATE SODIUM 100 MG CAPSULE PO SCH ×2 (09:42→21:21)
[2016-12-23] MEDS: HEPARIN SODIUM,PORCINE 5000 UNITS/ML VIAL SUBCUT SCH ×2 (09:46→21:24)
[2016-12-23 11:28] VITALS: BP_SYST 95
[2016-12-23 15:34] VITALS: BP_SYST 113
[2016-12-23 19:30] VITALS: BP_SYST 110
[2016-12-23] MEDS ORDERED: CEFEPIME 1 GM in D5W 50 ML IV SCH (21:00)
[2016-12-23 23:39] VITALS: BP_SYST 112
[2016-12-24] VITALS (8 sets, daily range): BP systolic 80–127
[2016-12-24] MEDS: GABAPENTIN 300 MG CAPSULE PO SCH ×3 (05:48→21:06)
[2016-12-24] MEDS: INSULIN REGULAR, HUMAN 100 UNITS/ML, 10 ML VIAL (novoLIN R) SUBCUT PRN ×4 (05:58→21:22)
[2016-12-24] MEDS ORDERED: NON-FORMULARY MEDICATION (Cholecalciferol (Vitamin D3) (Vitamin D) 50,000 UNIT) PO SCH (07:30)
[2016-12-24] MEDS ORDERED: cloNIDine HCL 0.1 MG TABLET PO ONE (08:00)
[2016-12-24 08:45] LABS: CALCIUM 8.4 mg/dL (8.4-11.0); PHOSPHORUS 5.1 mg/dL (2.7-4.5); POTASSIUM 3.6 mmol/L (3.5-5.1)
[2016-12-24] MEDS: ALPRAZolam 0.25 MG TABLET PO SCH ×2 (09:00→21:07)
[2016-12-24] MEDS: hydrALAZINE HCL 25 MG TABLET PO SCH ×3 (09:00→21:09)
[2016-12-24 09:15] LABS: CREATININE 8.57 mg/dL (0.55-1.30)
[2016-12-24] MEDS: DOCUSATE SODIUM 100 MG CAPSULE PO SCH ×2 (10:02→21:06)
[2016-12-24] MEDS: CALCIUM ACETATE 667 MG CAP PO SCH ×3 (10:02→18:37)
[2016-12-24] MEDS: FOLIC ACID 1 MG TABLET PO SCH (10:02)
[2016-12-24] MEDS: LEVOTHYROXINE SODIUM 0.05 MG TABLET PO SCH (10:03)
[2016-12-24] MEDS: FAMOTIDINE 20 MG TABLET PO SCH (10:03)
[2016-12-24] MEDS: NEPHROVITE, (FOLIC ACID/VITAMIN B COMP W-C 1 TAB) PO SCH (10:05)
[2016-12-24] MEDS: HEPARIN SODIUM,PORCINE 5000 UNITS/ML VIAL SUBCUT SCH ×2 (10:07→21:12)
[2016-12-24] MEDS: cloNIDine HCL 0.1 MG TABLET PO SCH ×2 (13:35→21:19)
[2016-12-24 16:45] LABS: BASOPHILS # (AUTO) 0.1 K/uL (0.0-0.2); BASOPHILS % (AUTO) 0.4 % (0.0-2.0); EOSINOPHILS # (AUTO) 0.3 K/uL (0.0-0.4); EOSINOPHILS % (AUTO) 2.1 % (0.0-4.0); HEMATOCRIT 36.4 % (36-48); HEMOGLOBIN 12.1 g/dL (12.0-16.0); LYMPHOCYTES # (AUTO) 2.1 K/uL (1.0-5.5); LYMPHOCYTES % (AUTO) 16.2 % (20.5-51.5); MEAN CORPUSCULAR HEMOGLOBIN 30 pg (27-31); MEAN CORPUSCULAR HGB CONC 33 % (32-36); MEAN CORPUSCULAR VOLUME 89 fL (79.0-98.0); MONOCYTES # (AUTO) 1.5 K/uL (0.0-1.0); MONOCYTES % (AUTO) 11.5 % (1.7-9.3); NEUTROPHILS % (AUTO) 69.8 % (40.0-70.0); PLATELET COUNT (AUTO) 221 K/uL (130-430); RED BLOOD CELL COUNT(AUTO) 4.08 MIL/uL (4.2-6.2); RED CELL DISTRIBUTION WIDTH 14.1 % (9.0-15.0)
[2016-12-25 02:08] LABS: T4 (THYROXINE) 8.8 ug/dL (4.5-12.0)
[2016-12-25 04:00] VITALS: BP_SYST 96
[2016-12-25] MEDS: cloNIDine HCL 0.1 MG TABLET PO SCH (06:00)
[2016-12-25] MEDS: GABAPENTIN 300 MG CAPSULE PO SCH ×2 (06:04→14:17)
[2016-12-25] MEDS: INSULIN REGULAR, HUMAN 100 UNITS/ML, 10 ML VIAL (novoLIN R) SUBCUT PRN ×3 (06:11→17:49)
[2016-12-25 07:26] LABS: BASOPHILS % (AUTO) 0.4 % (0.0-2.0); EOSINOPHILS # (AUTO) 0.2 K/uL (0.0-0.4); EOSINOPHILS % (AUTO) 1.9 % (0.0-4.0); LYMPHOCYTES # (AUTO) 2.3 K/uL (1.0-5.5); LYMPHOCYTES % (AUTO) 18.2 % (20.5-51.5); MEAN CORPUSCULAR HEMOGLOBIN 30 pg (27-31); MEAN CORPUSCULAR HGB CONC 34 % (32-36); MEAN CORPUSCULAR VOLUME 88 fL (79.0-98.0); NEUTROPHILS # (AUTO) 8.9 K/uL (1.8-7.7); NEUTROPHILS % (AUTO) 71.5 % (40.0-70.0); PLATELET COUNT (AUTO) 215 K/uL (130-430); RED BLOOD CELL COUNT(AUTO) 3.62 MIL/uL (4.2-6.2); WHITE BLOOD COUNT (AUTO) 12.4 K/uL (4.8-10.8)
[2016-12-25 07:41] LABS: CALCIUM 8.8 mg/dL (8.4-11.0); PHOSPHORUS 5.6 mg/dL (2.7-4.5); POTASSIUM 3.6 mmol/L (3.5-5.1)
[2016-12-25 08:10] LABS: CREATININE 10.75 mg/dL (0.55-1.30)
[2016-12-25 08:30] VITALS: BP_SYST 94
[2016-12-25] MEDS: CALCIUM ACETATE 667 MG CAP PO SCH ×3 (08:37→17:53)
[2016-12-25] MEDS: NEPHROVITE, (FOLIC ACID/VITAMIN B COMP W-C 1 TAB) PO SCH (08:37)
[2016-12-25] MEDS: LEVOTHYROXINE SODIUM 0.05 MG TABLET PO SCH (08:38)
[2016-12-25] MEDS: DOCUSATE SODIUM 100 MG CAPSULE PO SCH (08:38)
[2016-12-25] MEDS: FOLIC ACID 1 MG TABLET PO SCH (08:38)
[2016-12-25] MEDS: FAMOTIDINE 20 MG TABLET PO SCH (08:38)
[2016-12-25] MEDS: HEPARIN SODIUM,PORCINE 5000 UNITS/ML VIAL SUBCUT SCH (08:40)
[2016-12-25] MEDS: hydrALAZINE HCL 25 MG TABLET PO SCH ×2 (09:00→14:24)
[2016-12-25 12:36] VITALS: BP_SYST 89
[2016-12-25 16:23] VITALS: BP_SYST 104
[2016-12-25 19:46] VITALS: BP_SYST 117
[2016-12-25] MEDS ORDERED: cloNIDine HCL 0.1 MG TABLET PO SCH (21:00)
[2016-12-26 13:48] LABS: HEMOGLOBIN A1C 9.9 % (4.8-5.6)
[2016-12-27] MEDS ORDERED: VANCOMYCIN HCL 1,500 MG in NS 250 ML IV SCH (20:00)
== END 2016-12-25 20:45 | DRG 205 ==
LOC: SED 09:06 → STU 11:18
PROVIDERS: ADMIT General Practice; ATTEND General Practice
PROC: 5A1D60Z (ICD-10-PCS; principal; 2016-12-22)
PROC: 02HV33Z Insertion of Infusion Device into Superior Vena Cava, Percutaneous Approach (ICD-10-PCS; 2016-12-22)
PROC: B548ZZA Ultrasonography of Superior Vena Cava, Guidance (ICD-10-PCS; 2016-12-22)
DX: M94.0 Chondrocostal junction syndrome [Tietze] (principal); N18.6 End stage renal disease; I12.0 Hypertensive chronic kidney disease with stage 5 chronic kidney disease or end stage renal disease; D63.1 Anemia in chronic kidney disease; D72.829 Elevated white blood cell count, unspecified; E11.22 Type 2 diabetes mellitus with diabetic chronic kidney disease; E11.319 Type 2 diabetes mellitus with unspecified diabetic retinopathy without macular edema; R26.81 Unsteadiness on feet; H54.8 Legal blindness, as defined in USA; F43.9 Reaction to severe stress, unspecified; E78.5 Hyperlipidemia, unspecified; E11.40 Type 2 diabetes mellitus with diabetic neuropathy, unspecified; E03.9 Hypothyroidism, unspecified; F41.9 Anxiety disorder, unspecified; F32.9 Major depressive disorder, single episode, unspecified; M19.90 Unspecified osteoarthritis, unspecified site; Z79.899 Other long term (current) drug therapy; Z88.0 Allergy status to penicillin; Z99.2 Dependence on renal dialysis; Z90.49 Acquired absence of other specified parts of digestive tract; Z83.3 Family history of diabetes mellitus; Z82.49 Family history of ischemic heart disease and other diseases of the circulatory system; Z80.9 Family history of malignant neoplasm, unspecified
CPT/HCPCS: 36415; 71010; 80048; 80053; 80061; 82150-TC; 82962; 83036; 83605; 83690-TC; 83735-TC; 83880; 84100-TC; 84436; 84439; 84443-TC; 84479; 84484; 84703; 85025; 85379; 85610-TC; 87040-TC; 87081; 90935; 90937; 93005; 93306; 97110-GP; 97530-GP; 99285; C1751; C1769; J0692; J1644; J1815; J3370; J7030; J7050; J7060

== ENCOUNTER 2016-12-27 13:30 | Inpatient (IN) | payer OTHER ==
[~2016-12-27] VITALS: Ht 152.4 cm; Wt 103.9 kg
[2016-12-27 13:30] VITALS: BP_SYST 104
[~2016-12-27 13:30] MED LIST changes: -ALPR0.5T8 PO; -INSU100V11 SUBCUT
[2016-12-27 14:23] LABS: BASOPHILS # (AUTO) 0.2 K/uL (0.0-0.2); BASOPHILS % (AUTO) 1.6 % (0.0-2.0); EOSINOPHILS # (AUTO) 0.2 K/uL (0.0-0.4); HEMATOCRIT 31.5 % (36-48); HEMOGLOBIN 10.5 g/dL (12.0-16.0); LYMPHOCYTES # (AUTO) 1.8 K/uL (1.0-5.5); LYMPHOCYTES % (AUTO) 15.2 % (20.5-51.5); MEAN CORPUSCULAR HEMOGLOBIN 29 pg (27-31); MEAN CORPUSCULAR HGB CONC 33 % (32-36); MEAN CORPUSCULAR VOLUME 88 fL (79.0-98.0); MONOCYTES # (AUTO) 0.9 K/uL (0.0-1.0); MONOCYTES % (AUTO) 7.4 % (1.7-9.3); NEUTROPHILS # (AUTO) 8.7 K/uL (1.8-7.7); NEUTROPHILS % (AUTO) 73.8 % (40.0-70.0); PLATELET COUNT (AUTO) 195 K/uL (130-430); RED BLOOD CELL COUNT(AUTO) 3.57 MIL/uL (4.2-6.2); RED CELL DISTRIBUTION WIDTH 14.4 % (9.0-15.0); WHITE BLOOD COUNT (AUTO) 11.8 K/uL (4.8-10.8)
[2016-12-27 14:31] LABS: POTASSIUM 4.1 mmol/L (3.5-5.1)
[2016-12-27 14:33] LABS: INR 0.9 (0.8-1.2); PROTHROMBIN TIME 9.9 SECS (9.5-12.5)
[2016-12-27 14:38] LABS: CREATININE 10.83 mg/dL (0.55-1.30)
[2016-12-27 15:10] LABS: TOTAL BILIRUBIN 0.4 mg/dL (0.0-1.0)
[2016-12-27 15:11] LABS: TOTAL PROTEIN, SERUM 7.2 g/dL (6.4-8.3)
[2016-12-27 15:12] LABS: ALBUMIN 2.9 g/dL (3.4-4.8)
[2016-12-27 15:14] LABS: CKMB RELATIVE INDEX 0.1 (0.0-2.9); CREATINE KINASE MB 1.2 ng/mL (0-3.6)
[2016-12-27] MEDS ORDERED: NACL 0.9% 1,000 ML IV ONE ×2 (16:00→17:00)
[2016-12-27] MEDS ORDERED: cefTRIAXone 1 GM in D5W 50 ML IV ONE (16:00)
[2016-12-27] MEDS ORDERED: cefTRIAXone 1 GM VIAL ONE (16:20)
[2016-12-27 17:18] VITALS: BP_SYST 124
[2016-12-27 17:44] VITALS: BP_SYST 124
[2016-12-27] MEDS ORDERED: DEXTROSE 50% JECT 50 ML DISP.SYRIN IVP PRN ×2 (19:15)
[2016-12-27] MEDS ORDERED: VANCOMYCIN HCL 1 GM/NS PREMIX 250 ML IV ONE (19:15)
[2016-12-27 19:35] VITALS: BP_SYST 110
[2016-12-27] MEDS ORDERED: LEVOFLOXACIN 500 MG/D5W 100 ML IV ONE (20:00)
[2016-12-27] MEDS: GABAPENTIN 300 MG CAPSULE PO SCH (21:11)
[2016-12-27] MEDS: cloNIDine HCL 0.1 MG TABLET PO SCH (21:11)
[2016-12-28 00:35] VITALS: BP_SYST 105
[2016-12-28] MEDS ORDERED: HEPARIN IV FLUSH 300 UNITS/3ML SYR INJ ONE (03:15)
[2016-12-28 04:02] VITALS: BP_SYST 102
[2016-12-28] MEDS: cloNIDine HCL 0.1 MG TABLET PO SCH ×3 (05:51→21:54)
[2016-12-28] MEDS: LEVOTHYROXINE SODIUM 0.05 MG TABLET PO SCH (05:52)
[2016-12-28] MEDS: GABAPENTIN 300 MG CAPSULE PO SCH ×3 (05:52→21:55)
[2016-12-28 06:52] LABS: BASOPHILS # (AUTO) 0.1 K/uL (0.0-0.2); BASOPHILS % (AUTO) 0.5 % (0.0-2.0); EOSINOPHILS # (AUTO) 0.3 K/uL (0.0-0.4); EOSINOPHILS % (AUTO) 2.4 % (0.0-4.0); HEMATOCRIT 27.7 % (36-48); HEMOGLOBIN 9.4 g/dL (12.0-16.0); LYMPHOCYTES # (AUTO) 1.9 K/uL (1.0-5.5); LYMPHOCYTES % (AUTO) 14.9 % (20.5-51.5); MEAN CORPUSCULAR HEMOGLOBIN 30 pg (27-31); MEAN CORPUSCULAR HGB CONC 34 % (32-36); MEAN CORPUSCULAR VOLUME 88 fL (79.0-98.0); MONOCYTES # (AUTO) 0.9 K/uL (0.0-1.0); MONOCYTES % (AUTO) 7.3 % (1.7-9.3); NEUTROPHILS # (AUTO) 9.6 K/uL (1.8-7.7); NEUTROPHILS % (AUTO) 74.9 % (40.0-70.0); RED BLOOD CELL COUNT(AUTO) 3.15 MIL/uL (4.2-6.2); RED CELL DISTRIBUTION WIDTH 14.6 % (9.0-15.0); WHITE BLOOD COUNT (AUTO) 12.8 K/uL (4.8-10.8)
[2016-12-28 07:18] LABS: CALCIUM 8.2 mg/dL (8.4-11.0); PHOSPHORUS 6.4 mg/dL (2.7-4.5); POTASSIUM 4.3 mmol/L (3.5-5.1)
[2016-12-28 07:31] LABS: CREATININE 11.21 mg/dL (0.55-1.30)
[2016-12-28 08:03] VITALS: BP_SYST 105
[2016-12-28 09:35] LABS: PLATELET COUNT (AUTO) 178 K/uL (130-430)
[2016-12-28] MEDS: cefTRIAXone 1 GM in D5W 50 ML IV SCH (10:04)
[2016-12-28 12:06] VITALS: BP_SYST 99
[2016-12-28] MEDS: INSULIN REGULAR, HUMAN 100 UNITS/ML, 10 ML VIAL (novoLIN R) SUBCUT PRN ×3 (12:25→21:53)
[2016-12-28] MEDS: FAMOTIDINE 20 MG TABLET PO SCH (12:44)
[2016-12-28] MEDS: NEPHROVITE, (FOLIC ACID/VITAMIN B COMP W-C 1 TAB) PO SCH (12:44)
[2016-12-28] MEDS: FOLIC ACID 1 MG TABLET PO SCH (12:44)
[2016-12-28] MEDS: ONDANSETRON 4 MG ODT TAB PO SCH (12:44)
[2016-12-28 16:25] VITALS: BP_SYST 110
[2016-12-28] MEDS: CALCIUM ACETATE 667 MG CAP PO SCH (18:02)
[2016-12-28 19:55] VITALS: BP_SYST 127
[2016-12-28] MEDS ORDERED: COMMUNICATION ORDER XX ONE (21:30)
[2016-12-28] MEDS ORDERED: HEPARIN SODIUM, PORCINE 10,000 UNITS/ 10 ML VIAL MC ONE (22:00)
[2016-12-29 00:47] VITALS: BP_SYST 110
[2016-12-29 04:10] VITALS: BP_SYST 133
[2016-12-29] MEDS: GABAPENTIN 300 MG CAPSULE PO SCH (06:00)
[2016-12-29] MEDS: cloNIDine HCL 0.1 MG TABLET PO SCH (06:00)
[2016-12-29] MEDS: LEVOTHYROXINE SODIUM 0.05 MG TABLET PO SCH (06:21)
[2016-12-29 08:25] LABS: CALCIUM 8.1 mg/dL (8.4-11.0); CREATININE 7.16 mg/dL (0.55-1.30); POTASSIUM 3.7 mmol/L (3.5-5.1)
[2016-12-29] MEDS: NEPHROVITE, (FOLIC ACID/VITAMIN B COMP W-C 1 TAB) PO SCH (08:51)
[2016-12-29] MEDS: FAMOTIDINE 20 MG TABLET PO SCH (08:51)
[2016-12-29] MEDS: CALCIUM ACETATE 667 MG CAP PO SCH ×3 (08:51→17:44)
[2016-12-29] MEDS: cefTRIAXone 1 GM in D5W 50 ML IV SCH (08:51)
[2016-12-29] MEDS: FOLIC ACID 1 MG TABLET PO SCH (08:51)
[2016-12-29] MEDS: ONDANSETRON 4 MG ODT TAB PO SCH (08:51)
[2016-12-29 08:55] LABS: BASOPHILS % (AUTO) 0.4 % (0.0-2.0); EOSINOPHILS # (AUTO) 0.1 K/uL (0.0-0.4); EOSINOPHILS % (AUTO) 1.9 % (0.0-4.0); HEMATOCRIT 27.3 % (36-48); HEMOGLOBIN 9.1 g/dL (12.0-16.0); LYMPHOCYTES # (AUTO) 1.3 K/uL (1.0-5.5); LYMPHOCYTES % (AUTO) 17.2 % (20.5-51.5); MEAN CORPUSCULAR HEMOGLOBIN 30 pg (27-31); MEAN CORPUSCULAR HGB CONC 33 % (32-36); MEAN CORPUSCULAR VOLUME 89 fL (79.0-98.0); MONOCYTES # (AUTO) 0.8 K/uL (0.0-1.0); MONOCYTES % (AUTO) 10.3 % (1.7-9.3); NEUTROPHILS # (AUTO) 5.1 K/uL (1.8-7.7); NEUTROPHILS % (AUTO) 70.2 % (40.0-70.0); PLATELET COUNT (AUTO) 169 K/uL (130-430); RED BLOOD CELL COUNT(AUTO) 3.06 MIL/uL (4.2-6.2); WHITE BLOOD COUNT (AUTO) 7.3 K/uL (4.8-10.8)
[2016-12-29] MEDS ORDERED: cloNIDine HCL 0.1 MG TABLET PO PRN (10:45)
[2016-12-29] MEDS: INSULIN REGULAR, HUMAN 100 UNITS/ML, 10 ML VIAL (novoLIN R) SUBCUT PRN ×2 (11:21→21:13)
[2016-12-29 12:19] VITALS: BP_SYST 125
[2016-12-29 16:00] VITALS: BP_SYST 140
[2016-12-29 16:10] VITALS: BP_SYST 138
[2016-12-30 02:30] VITALS: BP_SYST 107
[2016-12-30 04:18] VITALS: BP_SYST 113
[2016-12-30] MEDS: LEVOTHYROXINE SODIUM 0.05 MG TABLET PO SCH (06:13)
[2016-12-30 06:41] LABS: BASOPHILS % (AUTO) 0.4 % (0.0-2.0); EOSINOPHILS # (AUTO) 0.2 K/uL (0.0-0.4); EOSINOPHILS % (AUTO) 2.4 % (0.0-4.0); HEMATOCRIT 28.7 % (36-48); HEMOGLOBIN 9.5 g/dL (12.0-16.0); LYMPHOCYTES % (AUTO) 27.9 % (20.5-51.5); MEAN CORPUSCULAR HEMOGLOBIN 30 pg (27-31); MEAN CORPUSCULAR HGB CONC 33 % (32-36); MEAN CORPUSCULAR VOLUME 89 fL (79.0-98.0); MONOCYTES # (AUTO) 0.7 K/uL (0.0-1.0); NEUTROPHILS # (AUTO) 4.2 K/uL (1.8-7.7); NEUTROPHILS % (AUTO) 59.3 % (40.0-70.0); PLATELET COUNT (AUTO) 179 K/uL (130-430); RED BLOOD CELL COUNT(AUTO) 3.22 MIL/uL (4.2-6.2); WHITE BLOOD COUNT (AUTO) 7.1 K/uL (4.8-10.8)
[2016-12-30 07:19] LABS: ALBUMIN 2.6 g/dL (3.4-4.8); CALCIUM 8.4 mg/dL (8.4-11.0); PHOSPHORUS 5.7 mg/dL (2.7-4.5); POTASSIUM 3.8 mmol/L (3.5-5.1); TOTAL BILIRUBIN 0.3 mg/dL (0.0-1.0); TOTAL PROTEIN, SERUM 6.6 g/dL (6.4-8.3)
[2016-12-30 07:51] LABS: CREATININE 8.52 mg/dL (0.55-1.30)
[2016-12-30 08:00] VITALS: BP_SYST 118
[2016-12-30] MEDS: ONDANSETRON 4 MG ODT TAB PO SCH (08:39)
[2016-12-30] MEDS: CALCIUM ACETATE 667 MG CAP PO SCH ×3 (08:39→18:10)
[2016-12-30] MEDS: cefTRIAXone 1 GM in D5W 50 ML IV SCH (08:39)
[2016-12-30] MEDS: NEPHROVITE, (FOLIC ACID/VITAMIN B COMP W-C 1 TAB) PO SCH (08:39)
[2016-12-30] MEDS: FAMOTIDINE 20 MG TABLET PO SCH (08:39)
[2016-12-30] MEDS: FOLIC ACID 1 MG TABLET PO SCH (08:39)
[2016-12-30 12:15] VITALS: BP_SYST 122
[2016-12-30] MEDS: INSULIN REGULAR, HUMAN 100 UNITS/ML, 10 ML VIAL (novoLIN R) SUBCUT PRN ×2 (12:34→20:52)
[2016-12-30 16:13] VITALS: BP_SYST 132
[2016-12-30 20:00] VITALS: BP_SYST 127
[2016-12-31] VITALS (7 sets, daily range): BP systolic 112–139
[2016-12-31] MEDS: LEVOTHYROXINE SODIUM 0.05 MG TABLET PO SCH (06:08)
[2016-12-31] MEDS: CALCIUM ACETATE 667 MG CAP PO SCH ×3 (08:00→17:42)
[2016-12-31] MEDS: cefTRIAXone 1 GM in D5W 50 ML IV SCH (08:40)
[2016-12-31] MEDS ORDERED: *CUBICIN 6 MG/KG Q48H/PHARMACY XX PRN (11:00)
[2016-12-31] MEDS: FAMOTIDINE 20 MG TABLET PO SCH (13:14)
[2016-12-31] MEDS: FOLIC ACID 1 MG TABLET PO SCH (13:14)
[2016-12-31] MEDS: ONDANSETRON 4 MG ODT TAB PO SCH (13:14)
[2016-12-31] MEDS: NEPHROVITE, (FOLIC ACID/VITAMIN B COMP W-C 1 TAB) PO SCH (13:14)
[2016-12-31] MEDS: DAPTOmycin 500 MG in NS 50 ML IV SCH (17:06)
[2016-12-31] MEDS: INSULIN REGULAR, HUMAN 100 UNITS/ML, 10 ML VIAL (novoLIN R) SUBCUT PRN ×2 (17:50→21:11)
[2016-12-31] MEDS ORDERED: ACETAMINOPHEN 325 MG TABLET PO PRN (18:00)
[2017-01-01] VITALS (8 sets, daily range): BP systolic 94–135
[2017-01-01] MEDS: LEVOTHYROXINE SODIUM 0.05 MG TABLET PO SCH (07:25)
[2017-01-01] MEDS: ONDANSETRON 4 MG ODT TAB PO SCH (09:31)
[2017-01-01] MEDS: FOLIC ACID 1 MG TABLET PO SCH (09:31)
[2017-01-01] MEDS: FAMOTIDINE 20 MG TABLET PO SCH (09:31)
[2017-01-01] MEDS: CALCIUM ACETATE 667 MG CAP PO SCH ×3 (09:31→18:32)
[2017-01-01] MEDS: NEPHROVITE, (FOLIC ACID/VITAMIN B COMP W-C 1 TAB) PO SCH (09:31)
[2017-01-01] MEDS: ACYCLOVIR IV 500 MG in D5W 100 ML IV SCH (10:01)
[2017-01-01] MEDS: cefTRIAXone 1 GM in D5W 50 ML IV SCH (10:08)
[2017-01-01] MEDS: INSULIN REGULAR, HUMAN 100 UNITS/ML, 10 ML VIAL (novoLIN R) SUBCUT PRN ×3 (12:14→21:16)
[2017-01-01] MEDS: DAPTOmycin 500 MG in NS 50 ML IV SCH (14:00)
[2017-01-01] MEDS ORDERED: MENTHOL/ZINC OXIDE 113 GM OINT. TP PRN (14:15)
[2017-01-01] MEDS: MENTHOL/ZINC OXIDE 113 GM OINT. TP SCH ×2 (17:00→21:12)
[2017-01-01 20:52] LABS: ABG TOTAL HEMOGLOBIN 10.2 G/dL (12.0-18.0); BLOOD GAS BASE EXCESS 2.4 mmol/L (-3.0-3.0); BLOOD GAS COHb% 0.3 % (0.5-1.5); BLOOD GAS HHB 2.5 % (0.0-6.0); BLOOD GAS PH 7.436 (7.350-7.450); BLOOD O2Hb% 96.9 % (94.0-97.0)
[2017-01-02 03:39] VITALS: BP_SYST 112
[2017-01-02] MEDS: LEVOTHYROXINE SODIUM 0.05 MG TABLET PO SCH (05:55)
[2017-01-02 08:00] VITALS: BP_SYST 96
[2017-01-02] MEDS: cefTRIAXone 1 GM in D5W 50 ML IV SCH (08:43)
[2017-01-02] MEDS: NEPHROVITE, (FOLIC ACID/VITAMIN B COMP W-C 1 TAB) PO SCH (08:53)
[2017-01-02] MEDS: FOLIC ACID 1 MG TABLET PO SCH (08:54)
[2017-01-02] MEDS: FAMOTIDINE 20 MG TABLET PO SCH (08:54)
[2017-01-02] MEDS: ONDANSETRON 4 MG ODT TAB PO SCH (08:54)
[2017-01-02] MEDS: CALCIUM ACETATE 667 MG CAP PO SCH ×3 (08:54→17:55)
[2017-01-02] MEDS: ACYCLOVIR IV 500 MG in D5W 100 ML IV SCH (09:19)
[2017-01-02] MEDS: MENTHOL/ZINC OXIDE 113 GM OINT. TP SCH ×4 (09:21→22:43)
[2017-01-02] MEDS: INSULIN REGULAR, HUMAN 100 UNITS/ML, 10 ML VIAL (novoLIN R) SUBCUT PRN ×3 (11:25→21:32)
[2017-01-02 12:16] VITALS: BP_SYST 110
[2017-01-02] MEDS: DAPTOmycin 500 MG in NS 50 ML IV SCH (13:46)
[2017-01-02 16:47] VITALS: BP_SYST 121
[2017-01-02] MEDS ORDERED: HEPARIN SODIUM, PORCINE 10,000 UNITS/ 10 ML VIAL MC ONE (19:00)
[2017-01-02 20:30] VITALS: BP_SYST 105
[2017-01-03 01:19] VITALS: BP_SYST 114
[2017-01-03 03:27] VITALS: BP_SYST 117
[2017-01-03] MEDS: LEVOTHYROXINE SODIUM 0.05 MG TABLET PO SCH (06:37)
[2017-01-03 08:00] VITALS: BP_SYST 122
[2017-01-03] MEDS: FAMOTIDINE 20 MG TABLET PO SCH (08:52)
[2017-01-03] MEDS: ONDANSETRON 4 MG ODT TAB PO SCH (08:52)
[2017-01-03] MEDS: NEPHROVITE, (FOLIC ACID/VITAMIN B COMP W-C 1 TAB) PO SCH (08:52)
[2017-01-03] MEDS: CALCIUM ACETATE 667 MG CAP PO SCH ×3 (08:52→17:24)
[2017-01-03] MEDS: FOLIC ACID 1 MG TABLET PO SCH (08:52)
[2017-01-03] MEDS: MENTHOL/ZINC OXIDE 113 GM OINT. TP SCH ×4 (08:53→21:56)
[2017-01-03] MEDS: ACYCLOVIR IV 500 MG in D5W 100 ML IV SCH (10:38)
[2017-01-03] MEDS: cefTRIAXone 1 GM in D5W 50 ML IV SCH (11:58)
[2017-01-03 12:00] VITALS: BP_SYST 135
[2017-01-03] MEDS: INSULIN REGULAR, HUMAN 100 UNITS/ML, 10 ML VIAL (novoLIN R) SUBCUT PRN ×2 (12:44→21:56)
[2017-01-03] MEDS ORDERED: ATORVASTATIN 20 MG TABLET PO ONE (13:00)
[2017-01-03] MEDS ORDERED: ASPIRIN 81 MG TAB.CHEW PO ONE (13:00)
[2017-01-03 13:11] LABS: FOLATE (FOLIC ACID) >20.0 ng/mL (>3.0)
[2017-01-03 13:51] LABS: THYROID STIMULATING HORMONE 1.09 uIu/mL (0.34-4.82)
[2017-01-03 16:05] VITALS: BP_SYST 111
[2017-01-03 21:57] VITALS: BP_SYST 146
[2017-01-04 00:40] VITALS: BP_SYST 117
[2017-01-04 04:04] VITALS: BP_SYST 111
[2017-01-04] MEDS: LEVOTHYROXINE SODIUM 0.05 MG TABLET PO SCH (06:03)
[2017-01-04 08:59] VITALS: BP_SYST 139
[2017-01-04] MEDS: CALCIUM ACETATE 667 MG CAP PO SCH ×3 (09:35→17:45)
[2017-01-04] MEDS: ONDANSETRON 4 MG ODT TAB PO SCH (09:35)
[2017-01-04] MEDS: ATORVASTATIN 20 MG TABLET PO SCH (09:36)
[2017-01-04] MEDS: ASPIRIN 81 MG TAB.CHEW PO SCH (09:36)
[2017-01-04] MEDS: NEPHROVITE, (FOLIC ACID/VITAMIN B COMP W-C 1 TAB) PO SCH (09:36)
[2017-01-04] MEDS: FOLIC ACID 1 MG TABLET PO SCH (09:36)
[2017-01-04] MEDS: FAMOTIDINE 20 MG TABLET PO SCH (09:36)
[2017-01-04] MEDS: cefTRIAXone 1 GM in D5W 50 ML IV SCH (09:37)
[2017-01-04] MEDS: ACYCLOVIR IV 500 MG in D5W 100 ML IV SCH (09:37)
[2017-01-04] MEDS: INSULIN REGULAR, HUMAN 100 UNITS/ML, 10 ML VIAL (novoLIN R) SUBCUT PRN ×3 (12:58→21:08)
[2017-01-04 14:03] VITALS: BP_SYST 115
[2017-01-04] MEDS: MENTHOL/ZINC OXIDE 113 GM OINT. TP SCH ×4 (17:00→21:14)
[2017-01-04 17:10] VITALS: BP_SYST 150
[2017-01-04 19:50] VITALS: BP_SYST 125
[2017-01-05 00:34] VITALS: BP_SYST 118
[2017-01-05 05:21] VITALS: BP_SYST 114
[2017-01-05] MEDS: LEVOTHYROXINE SODIUM 0.05 MG TABLET PO SCH (06:06)
[2017-01-05] MEDS: NEPHROVITE, (FOLIC ACID/VITAMIN B COMP W-C 1 TAB) PO SCH (07:59)
[2017-01-05] MEDS: ASPIRIN 81 MG TAB.CHEW PO SCH (07:59)
[2017-01-05] MEDS: FAMOTIDINE 20 MG TABLET PO SCH (07:59)
[2017-01-05] MEDS: cefTRIAXone 1 GM in D5W 50 ML IV SCH (07:59)
[2017-01-05] MEDS: ONDANSETRON 4 MG ODT TAB PO SCH (07:59)
[2017-01-05] MEDS: ACYCLOVIR IV 500 MG in D5W 100 ML IV SCH (07:59)
[2017-01-05] MEDS: CALCIUM ACETATE 667 MG CAP PO SCH ×2 (07:59→13:12)
[2017-01-05] MEDS: ATORVASTATIN 20 MG TABLET PO SCH (07:59)
[2017-01-05] MEDS: FOLIC ACID 1 MG TABLET PO SCH (08:00)
[2017-01-05] MEDS: MENTHOL/ZINC OXIDE 113 GM OINT. TP SCH ×4 (08:00→20:46)
[2017-01-05 08:02] VITALS: BP_SYST 189
[2017-01-05] MEDS ORDERED: MINERAL OIL 133 ML ENEMA RC ONE (10:00)
[2017-01-05] MEDS ORDERED: BISACODYL 10 MG/SUPPOSITORY RC ONE (10:00)
[2017-01-05 11:25] VITALS: BP_SYST 120
[2017-01-05] MEDS: INSULIN REGULAR, HUMAN 100 UNITS/ML, 10 ML VIAL (novoLIN R) SUBCUT PRN ×2 (13:48→20:45)
[2017-01-05 15:32] VITALS: BP_SYST 124
[2017-01-05 20:00] VITALS: BP_SYST 160
[2017-01-06 01:14] VITALS: BP_SYST 148
[2017-01-06 04:10] VITALS: BP_SYST 102
[2017-01-06] MEDS: LEVOTHYROXINE SODIUM 0.05 MG TABLET PO SCH (06:00)
[2017-01-06] MEDS: CALCIUM ACETATE 667 MG CAP PO SCH ×4 (08:00→17:10)
[2017-01-06] MEDS: ACYCLOVIR IV 500 MG in D5W 100 ML IV SCH (10:21)
[2017-01-06] MEDS: FOLIC ACID 1 MG TABLET PO SCH (10:22)
[2017-01-06] MEDS: NEPHROVITE, (FOLIC ACID/VITAMIN B COMP W-C 1 TAB) PO SCH (10:22)
[2017-01-06] MEDS: ASPIRIN 81 MG TAB.CHEW PO SCH (10:22)
[2017-01-06] MEDS: FAMOTIDINE 20 MG TABLET PO SCH (10:23)
[2017-01-06] MEDS: MENTHOL/ZINC OXIDE 113 GM OINT. TP SCH ×3 (10:25→17:12)
[2017-01-06] MEDS: cefTRIAXone 1 GM in D5W 50 ML IV SCH (10:34)
[2017-01-06] MEDS: ONDANSETRON 4 MG ODT TAB PO SCH (10:34)
[2017-01-06] MEDS: ATORVASTATIN 20 MG TABLET PO SCH (10:34)
[2017-01-06] MEDS ORDERED: BISACODYL 10 MG/SUPPOSITORY RC ONE (11:00)
[2017-01-06 12:39] VITALS: BP_SYST 119
[2017-01-06 14:42] VITALS: BP_SYST 106
[2017-01-06 16:17] VITALS: BP_SYST 135
[2017-01-06] MEDS: INSULIN REGULAR, HUMAN 100 UNITS/ML, 10 ML VIAL (novoLIN R) SUBCUT PRN (17:04)
== END 2017-01-06 17:30 | DRG 314 ==
LOC: SED 13:30 → STU 16:11 → SMU 12-30 17:07
PROVIDERS: ADMIT Internal Medicine; ATTEND Internal Medicine
PROC: 5A1D60Z (ICD-10-PCS; principal; 2016-12-28)
PROC: 02H633Z Insertion of Infusion Device into Right Atrium, Percutaneous Approach (ICD-10-PCS; 2016-12-28)
PROC: B244ZZZ Ultrasonography of Right Heart (ICD-10-PCS; 2016-12-28)
PROC: 02PAX3Z Removal of Infusion Device from Heart, External Approach (ICD-10-PCS; 2017-01-06)
PROC: 06HM33Z Insertion of Infusion Device into Right Femoral Vein, Percutaneous Approach (ICD-10-PCS; 2017-01-06)
DX: T80.211A Bloodstream infection due to central venous catheter, initial encounter (principal); G93.41 Metabolic encephalopathy; N18.6 End stage renal disease; A41.9 Sepsis, unspecified organism; J18.9 Pneumonia, unspecified organism; I63.8 Other cerebral infarction; R65.21 Severe sepsis with septic shock; I12.0 Hypertensive chronic kidney disease with stage 5 chronic kidney disease or end stage renal disease; E44.1 Mild protein-calorie malnutrition; Z68.41 Body mass index [BMI] 40.0-44.9, adult; E11.22 Type 2 diabetes mellitus with diabetic chronic kidney disease; E11.319 Type 2 diabetes mellitus with unspecified diabetic retinopathy without macular edema; E11.65 Type 2 diabetes mellitus with hyperglycemia; E66.01 Morbid (severe) obesity due to excess calories; E78.5 Hyperlipidemia, unspecified; Y84.8 Other medical procedures as the cause of abnormal reaction of the patient, or of later complication, without mention of misadventure at the time of the procedure; Z88.0 Allergy status to penicillin; Z99.2 Dependence on renal dialysis
CPT/HCPCS: 36415; 36600; 70450-TC; 70551; 71010; 80048; 80053; 80061; 82140-TC; 82550-TC; 82553-TC; 82607; 82746; 82803-TC; 82962; 83036; 83605; 83921; 84100-TC; 84443-TC; 84484; 85025; 85610-TC; 85730-TC; 86694; 87040-TC; 87081; 90935; 90937; 92610-GN; 93005; 93306; 93880; 96365; 97110-GP; 97116-GP; 97530-GP; 99285; C1751; J0133; J0696; J0878; J1642; J1644; J1815; J1956; J3370; J7030; J7042; J7050; J7060; Q0162